=== PATIENT | female | born 1950 | race Caucasian/White ===

== ENCOUNTER 2018-12-05 13:39 | Emergency (ER) | payer MEDICARE, OTHER ==
[~2018-12-05] VITALS: Ht 162.6 cm; Wt 52.2 kg
--- NOTE | 2018-12-05 13:56 | ED Respiratory ---
General Chief Complaint: Respiratory Problems Stated Complaint: SOB Source: patient Exam Limitations: no limitations History of Present Illness Date Seen by Provider: Dec 05, 2018 Time Seen by Provider: 13:45 Initial Comments The patient is a very pleasant 68-year-old female who presents for evaluation of cough, shortness of breath, and wheezing. She reports a history of COPD and is a current smoker. She states that she went to her doctor's office for a "steroid pill" and was told that she needed to go to the emergency department for IV steroids as well as additional medications. She denies any history of admission or intubation and is at several similar episodes. She is tachypneic and wheezing upon arrival in mild to moderate distress. She is alert and oriented 4 and slightly anxious. She is noted to be quite hypertensive upon arrival but denies any significant history of hypertension or cardiac problems. She denies hemoptysis, productive cough, fevers or chills, nausea or vomiting, diaphoresis, palpitations, abdominal pain, back pain, chest pain, dizziness or syncope. Timing/Duration: this morning Severity: moderate Prior Episodes/Possible Cause: occasional episodes Modifying Factors: Improves With Albuterol Nebulizer (helped a little) Associated Symptoms: cough Allergies and Home Medications Allergies Coded Allergies: No Known Drug Allergies (Unverified , 12/05/18) Patient Home Medication List Home Medication List Reviewed: Yes Review of Systems Review of Systems Constitutional: no symptoms reported EENTM: no symptoms reported Respiratory: cough, short of breath, wheezing Cardiovascular: no symptoms reported Gastrointestinal: no symptoms reported Genitourinary: no symptoms reported Musculoskeletal: no symptoms reported Skin: no symptoms reported Psychiatric/Neurological: No Symptoms Reported Hematologic/Lymphatic: No Symptoms Reported Immunological/Allergic: no symptoms reported All Other Systems Reviewed Negative Unless Noted: Yes Past Mzaymmj-Ixhnll-Bqsoni Hx Past Med/Social Hx: Reviewed Nursing Past Med/Soc Hx Physical Exam Vital Signs - First Documented 12/05/18 12/05/18 13:43 13:45 Temp 97.2 Pulse 86 Resp 26 B/P (MAP) 213/114 (147) Pulse Ox 94 O2 Delivery Nasal Cannula O2 Flow Rate 2.00 FiO2 94 Capillary Refill : Height: '" Weight: lbs. oz. kg; BMI Method: General Appearance: WD/WN, moderate distress HEENT: PERRL/EOMI, pharynx normal Neck: non-tender, full range of motion, supple Respiratory: chest non-tender, accessory muscle use, wheezing Cardiovascular: regular rate, rhythm, no JVD, no murmur Gastrointestinal: normal bowel sounds, non tender, soft, no organomegaly Extremities: normal range of motion, non-tender, no pedal edema Neurologic/Psychiatric: carding doubler II-XII nml as tested, alert, normal mood/affect, oriented x 3 Skin: normal color, warm/dry Lymphatic: no adenopathy Progress/Results/Core Measures Suspected Sepsis SIRS Temperature: Pulse: Respiratory Rate: Laboratory Tests 12/05/18 13:55: White Blood Count 10.7 Blood Pressure / Mean: Laboratory Tests 12/05/18 13:55: Creatinine 0.80, Platelet Count 238, Total Bilirubin 0.6 Results/Orders Lab Results Laboratory Tests Test 12/05/18 13:55 12/05/18 14:27 Range/Units White Blood Count 10.7 4.3-11.0 10^3/uL Red Blood Count 5.27 4.35-5.85 10^6/uL Hemoglobin 15.6 11.5-16.0 G/DL Hematocrit 48 35-52 % Mean Corpuscular Volume 91 80-99 FL Mean Corpuscular Hemoglobin 30 25-34 PG Mean Corpuscular Hemoglobin Concent 32 32-36 G/DL Red Cell Distribution Width 14.4 10.0-14.5 % Platelet Count 238 130-400 10^3/uL Mean Platelet Volume 11.2 H 7.4-10.4 FL Neutrophils (%) (Auto) 61 42-75 % Lymphocytes (%) (Auto) 27 12-44 % Monocytes (%) (Auto) 8 0-12 % Eosinophils (%) (Auto) 3 0-10 % Basophils (%) (Auto) 1 0-10 % Neutrophils # (Auto) 6.5 1.8-7.8 X 10^3 Lymphocytes # (Auto) 2.9 1.0-4.0 X 10^3 Monocytes # (Auto) 0.9 0.0-1.0 X 10^3 Eosinophils # (Auto) 0.4 H 0.0-0.3 10^3/uL Basophils # (Auto) 0.1 0.0-0.1 10^3/uL Sodium Level 141 135-145 MMOL/L Potassium Level 4.1 3.6-5.0 MMOL/L Chloride Level 100 98-107 MMOL/L Carbon Dioxide Level 28 21-32 MMOL/L Anion Gap 13 5-14 MMOL/L Blood Urea Nitrogen 14 7-18 MG/DL Creatinine 0.80 0.60-1.30 MG/DL Estimat Glomerular Filtration Rate > 60 BUN/Creatinine Ratio 18 Glucose Level 121 H 70-105 MG/DL Calcium Level 9.1 8.5-10.1 MG/DL Corrected Calcium 9.0 8.5-10.1 MG/DL Total Bilirubin 0.6 0.1-1.0 MG/DL Aspartate Amino Transf (AST/SGOT) 25 5-34 U/L Alanine Aminotransferase (ALT/SGPT) 19 0-55 U/L Alkaline Phosphatase 112 40-136 U/L Pro-B-Type Natriuretic Peptide 67.1 <75.0 PG/ML Total Protein 6.5 6.4-8.2 GM/DL Albumin 4.1 3.2-4.5 GM/DL Blood Gas Puncture Site LEFT RADIAL Blood Gas Patient Temperature 98.1 Arterial Blood pH 7.41 7.37-7.43 Arterial Blood Partial Pressure CO2 58 H 35-45 MMHG Arterial Blood Partial Pressure O2 98 H 79-93 MMHG Arterial Blood HCO3 37 H 23-27 MMOL/L Arterial Blood Total CO2 38.6 H 21.0-31.0 MMOL/L Arterial Blood Oxygen Saturation 98 94-100 % Arterial Blood Base Excess 10.1 H -2.5-2.5 MMOL/L Sheldon Test YES-POS Blood Gas Ventilator Setting NO Blood Gas Inspired Oxygen 2 L My Orders Orders - LIBIA MCCANN DO Albuterol/Ipra Inhalation Soln (Duoneb I (12/05/18 14:00) Svn Small Volume Nebulizer (12/05/18 13:50) Methylprednisolone Sod Succ (Solu-Medrol (12/05/18 14:00) Magnesium 1 Gm/100 Ml Ivpb (Magnesium Christianson (12/05/18 14:00) Cbc With Automated Diff (12/05/18 13:50) Comprehensive Metabolic Panel (12/05/18 13:50) Chest 1 View Ap/Pa Only (12/05/18 13:50) Ekg Tracing (12/05/18 13:50) O2 (12/05/18 13:50) Ed Iv/Invasive Line Start (12/05/18 13:50) Monitor-Rhythm Ecg Trace Only (12/05/18 13:50) Arterial Blood Gas (12/05/18 13:50) Probnp Fs (12/05/18 13:50) Medications Given in ED Current Medications Medications Dose Ordered Sig/Zay Route Start Time Stop Time Status Last Admin Dose Admin Albuterol/ Ipratropium 3 ml ONCE ONCE INH 12/05/18 14:00 12/05/18 14:01 DC 12/05/18 14:33 3 ML Methylprednisolone Sodium Succinate 125 mg ONCE ONCE IM 12/05/18 14:00 12/05/18 14:01 DC 12/05/18 14:35 125 MG Vital Signs/I&O 12/05/18 12/05/18 13:43 13:45 Temp 97.2 Pulse 86 Resp 26 B/P (MAP) 213/114 (147) Pulse Ox 94 O2 Delivery Nasal Cannula Nasal Cannula O2 Flow Rate 2.00 2.00 FiO2 94 Capillary Refill : Progress Note : Progress Note @1512 - Patient updated on lab and imaging results. She states that she feels completely better and wants to go home. Advised the patient to follow up with her PCP in the next 1-2 days and to return to the emergency department immediately for difficult breathing, new or worsening symptoms. She expresses verbal understanding and is stable for discharge at this time. ECG Comment @1425 - Normal sinus rhythm, rate of 73, normal axis, no acute ischemic findings noted, no STEMI, reviewed and interpreted by myself Diagnostic Imaging Diagonstic Imaging: Xray Comments [facility], [place] NAME: TANO CORRALES [facility] REC#: [id number] PT STATUS: REG ER : 1950 PHYSICIAN: LIBIA MCCANN DO ADMIT DATE: 12/05/18/ER FS Draft Date of Exam:12/05/18 CHEST 1 VIEW AP/PA ONLY INDICATION: Shortness of breath and chronic bronchitis. TIME OF EXAM: 1:42 p.m. COMPARISON: No prior studies are available for comparison. FINDINGS: Significant emphysematous changes are identified in both lungs. No acute infiltrates are seen. No effusion or pneumothorax is identified. IMPRESSION: COPD. No acute feature is detected. Dictated on workstation # [id number] Dict: 12/05/18 1405 Trans: 12/05/18 1409 [id number] Interpreted by: DARY SULTANA MD Electronically signed by: Departure Impression Primary Impression: COPD with exacerbation Additional Impression: Tobacco abuse Disposition: 01 HOME, SELF-CARE Condition: Stable Departure-Patient Inst. Referrals: UMBERTO PITTS MD (PCP/Family) Primary Care Physician Patient Instructions: Exacerbation of COPD, Quitting Smoking Add. Discharge Instructions: Follow-up with her doctor in the next 1-2 days. Return to the ER for new or worsening symptoms. Take the prescribed medicine as directed. Scripts Prednisone (Prednisone) 20 Mg Tab 40 MG PO DAILY for 5 Days, #5 TAB 0 Refills Prov: LIBIA MCCANN DO 12/05/18 LIBIA MCCANN DO Dec 05, 2018 13:56
[2018-12-05] MEDS ORDERED: RT-ALBUTEROL/IPRATROPIUM 3 ML (DUONEB) VIAL INH ONE (14:00)
[2018-12-05] MEDS ORDERED: methylPREDNISolone 125 MG (Solu-MEDROL) VIAL IM ONE (14:00)
[2018-12-05 14:06] LABS: BASOPHILS % (AUTO) 1 % (0-10); EOSINOPHILS % (AUTO) 3 % (0-10); HEMATOCRIT 48 % (35-52); HEMOGLOBIN 15.6 G/DL (11.5-16.0); LYMPHOCYTES # (AUTO) 2.9 X 10^3 (1.0-4.0); LYMPHOCYTES % (AUTO) 27 % (12-44); MEAN CORPUSCULAR HEMOGLOBIN 30 PG (25-34); MEAN CORPUSCULAR HGB CONC 32 G/DL (32-36); MEAN CORPUSCULAR VOLUME 91 FL (80-99); MEAN PLATELET VOLUME 11.2 FL (7.4-10.4); MONOCYTES # (AUTO) 0.9 X 10^3 (0.0-1.0); MONOCYTES % (AUTO) 8 % (0-12); NEUTROPHILS # (AUTO) 6.5 X 10^3 (1.8-7.8); NEUTROPHILS % (AUTO) 61 % (42-75); PLATELET COUNT 238 10^3/uL (130-400); RED CELL DISTRIBUTION WIDTH 14.4 % (10.0-14.5); WHITE BLOOD COUNT 10.7 10^3/uL (4.3-11.0)
[2018-12-05 14:07] LABS: BASOPHILS # (AUTO) 0.1 10^3/uL (0.0-0.1); EOSINOPHILS # (AUTO) 0.4 10^3/uL (0.0-0.3)
--- NOTE | 2018-12-05 14:09 | Diagnostic Imaging Report ---
INDICATION: Shortness of breath and chronic bronchitis. TIME OF EXAM: 1:42 p.m. COMPARISON: No prior studies are available for comparison. FINDINGS: Significant emphysematous changes are identified in both lungs. No acute infiltrates are seen. No effusion or pneumothorax is identified. IMPRESSION: COPD. No acute feature is detected. Dictated by: Dictated on workstation # [id number]
[2018-12-05 14:26] LABS: ALANINE AMINOTRANSFERASE 19 U/L (0-55); ALKALINE PHOSPHATASE 112 U/L (40-136); BILIRUBIN,TOTAL 0.6 MG/DL (0.1-1.0); BUN/CREATININE RATIO 18; CALCIUM 9.1 MG/DL (8.5-10.1); CARBON DIOXIDE 28 MMOL/L (21-32); CHLORIDE 100 MMOL/L (98-107); GFR ESTIMATED > 60; GLUCOSE 121 MG/DL (70-105); POTASSIUM 4.1 MMOL/L (3.6-5.0); SODIUM 141 MMOL/L (135-145); TOTAL PROTEIN 6.5 GM/DL (6.4-8.2)
[2018-12-05 14:27] LABS: ALBUMIN 4.1 GM/DL (3.2-4.5)
[2018-12-05] MEDS: MAGNESIUM 1 GM/100 ML IVPB 100 ML IV SCH ×2 (14:35→15:23)
[2018-12-05 15:03] LABS: ABG BASE EXCESS 10.1 MMOL/L (-2.5-2.5); ABG PCO2 58 MMHG (35-45); ABG PH 7.41 (7.37-7.43); ABG PO2 98 MMHG (79-93); ABG TCO2 38.6 MMOL/L (21.0-31.0)
[2018-12-05 15:04] LABS: ABG OXYGEN SATURATION 98 % (94-100); ALLENS TEST YES-POS; INSPIRED O2 2 L; PATIENT TEMP 98.1; VENTILATOR NO
[2018-12-05] MEDS ORDERED: PRD20T PO (15:16)
[2018-12-05 15:53] VITALS: BP 128/81
== END 2018-12-05 15:57 | disposition home or self-care (01) ==
LOC: EDUNIT# 13:39 → ER FS 13:41
DX: J44.1 Chronic obstructive pulmonary disease with (acute) exacerbation (principal); F17.200 Nicotine dependence, unspecified, uncomplicated
CPT/HCPCS: 36415; 71045; 80053; 82805; 83880; 85025; 93005; 93041; 94640

== ENCOUNTER 2021-03-06 09:31 | Day surgery (SDC) | payer MEDICARE ==
[~2021-03-06] VITALS: Ht 162.6 cm; Wt 48.5 kg
[~2021-03-06 09:31] MED LIST: PRD20T PO
--- NOTE | 2021-03-06 09:48 | ED Respiratory ---
General Chief Complaint: Respiratory Problems Stated Complaint: COPD, SOB Source: patient Exam Limitations: no limitations History of Present Illness Date Seen by Provider: Mar 06, 2021 Time Seen by Provider: 09:30 Initial Comments Patient is a 70-year-old female who presents to the emergency department today with a chief complaint of progressive shortness of breath over the course of the last week with increasing cough and sputum production. Patient states that over the course of the last week she is also had increased swelling to her bilateral lower extremities with drainage from the right lower extremity secondary to all the swelling. Patient tells me that her only medical history is COPD and all that she takes are respiratory medications. She states that she has chest "tightness" as a result of having such difficulty breathing. When she arrived to the emergency room her oxygen saturations on room air were 68/69%. She drove down from [place], does not have portable oxygen and therefore did not have any on. She states she is not Covid vaccinated. She denies any fevers, chills, sore throat, body aches. No diarrhea, problems with bladder issues. Patient states it has been about 6 months since she has seen anybody at [facility] in [place]. All other review of systems reviewed and negative except as stated. Timing/Duration: week, getting worse Severity: severe Prior Episodes/Possible Cause: frequent episodes Modifying Factors: Improves With Albuterol Inhaler, Improves With Oxygen Associated Symptoms: chest pain/soreness ("tightness"), lightheadedness, shortness of breath, wheezing Allergies and Home Medications Allergies Coded Allergies: No Known Drug Allergies (Unverified , 12/05/18) Patient Home Medication List Home Medication List Reviewed: Yes Prednisone (Prednisone) 20 Mg Tab, 40 MG PO DAILY Prescribed by: LIBIA MCCANN on 12/05/18 7246 Review of Systems Review of Systems Constitutional: see HPI EENTM: no symptoms reported Respiratory: cough, phlegm, short of breath, wheezing Cardiovascular: chest pain ("tightness"), edema Gastrointestinal: no symptoms reported Genitourinary: no symptoms reported : No Musculoskeletal: no symptoms reported Skin: no symptoms reported Psychiatric/Neurological: No Symptoms Reported All Other Systems Reviewed Negative Unless Noted: Yes Past Nsmaaqe-Yjvgdv-Copfui Hx Seasonal Allergies Seasonal Allergies: No Past Medical History Surgeries: Yes Gallbladder, Tonsillectomy, Tubal Ligation Respiratory: Yes Chronic Bronchitis, COPD Cardiac: No Neurological: No Genitourinary: No Gastrointestinal: No Musculoskeletal: No Endocrine: No HEENT: No Cancer: No Psychosocial: No Integumentary: No Physical Exam Vital Signs - First Documented Capillary Refill : Height: 5'4.00" Weight: 115lbs. oz. 52.107589vm; BMI Method:Stated General Appearance: moderate distress, cachetic Eyes: Bilateral Eye Normal Inspection, Bilateral Eye PERRL, Bilateral Eye EOMI HEENT: PERRL/EOMI Neck: full range of motion Respiratory: accessory muscle use, wheezing, expiration, other (mild to moderate increased work of breathing) Cardiovascular: regular rate, rhythm, other (significant LE edema bilateral (right greater than left leg)) Gastrointestinal: normal bowel sounds, non tender, soft Extremities: normal range of motion, pedal edema Neurologic/Psychiatric: alert, normal mood/affect, oriented x 3 Skin: warm/dry, pallor Progress/Results/Core Measures Suspected Sepsis SIRS Temperature: Pulse: Respiratory Rate: Laboratory Tests 03/06/21 09:40: White Blood Count 8.9 Blood Pressure / Mean: Laboratory Tests 03/06/21 09:40: Creatinine 0.66, Platelet Count 205, Total Bilirubin 0.9 Results/Orders Lab Results Laboratory Tests Test 03/06/21 09:40 Range/Units White Blood Count 8.9 4.3-11.0 10^3/uL Red Blood Count 5.35 H 3.80-5.11 10^6/uL Hemoglobin 15.4 11.5-16.0 g/dL Hematocrit 50 35-52 % Mean Corpuscular Volume 93 80-99 fL Mean Corpuscular Hemoglobin 29 25-34 pg Mean Corpuscular Hemoglobin Concent 31 L 32-36 g/dL Red Cell Distribution Width 15.3 H 10.0-14.5 % Platelet Count 205 130-400 10^3/uL Mean Platelet Volume 11.4 9.0-12.2 fL Immature Granulocyte % (Auto) 0 % Neutrophils (%) (Auto) 75 42-75 % Lymphocytes (%) (Auto) 14 12-44 % Monocytes (%) (Auto) 9 0-12 % Eosinophils (%) (Auto) 1 0-10 % Basophils (%) (Auto) 1 0-10 % Neutrophils # (Auto) 6.6 1.8-7.8 10^3/uL Lymphocytes # (Auto) 1.2 1.0-4.0 10^3/uL Monocytes # (Auto) 0.8 0.0-1.0 10^3/uL Eosinophils # (Auto) 0.1 0.0-0.3 10^3/uL Basophils # (Auto) 0.1 0.0-0.1 10^3/uL Immature Granulocyte # (Auto) 0.0 0.0-0.1 10^3/uL Sodium Level 143 135-145 MMOL/L Potassium Level 3.4 L 3.6-5.0 MMOL/L Chloride Level 88 L 98-107 MMOL/L Carbon Dioxide Level 42 H 21-32 MMOL/L Anion Gap 13 5-14 MMOL/L Blood Urea Nitrogen 10 7-18 MG/DL Creatinine 0.66 0.60-1.30 MG/DL Estimat Glomerular Filtration Rate 89 BUN/Creatinine Ratio 15 Glucose Level 115 H 70-105 MG/DL Calcium Level 8.9 8.5-10.1 MG/DL Corrected Calcium 9.2 8.5-10.1 MG/DL Total Bilirubin 0.9 0.1-1.0 MG/DL Aspartate Amino Transf (AST/SGOT) 41 H 5-34 U/L Alanine Aminotransferase (ALT/SGPT) 29 0-55 U/L Alkaline Phosphatase 85 40-136 U/L Troponin I 0.189 H <0.028 NG/ML B-Type Natriuretic Peptide 789.7 H <100.0 PG/ML Total Protein 5.6 L 6.4-8.2 GM/DL Albumin 3.6 3.2-4.5 GM/DL Procalcitonin 0.08 <0.10 NG/ML My Orders Orders - NIRAV KIDD MD Ed Iv/Invasive Line Start (03/06/21 09:42) Cbc With Automated Diff (03/06/21 09:42) BNP (03/06/21 09:42) Troponin I (03/06/21 09:42) Ekg Tracing (03/06/21 09:42) Chest 1 View, Ap/Pa Only (03/06/21 09:42) Comprehensive Metabolic Panel (03/06/21 09:42) Procalcitonin (Pct) (03/06/21 09:48) Albuterol/Ipra Inhalation Soln (Rosanneb I (03/06/21 10:15) Svn Small Volume Nebulizer (03/06/21 10:06) Communication For Respiratory (03/06/21 10:06) Methylprednisolone Sod Succ (Solu-Medrol (03/06/21 10:15) Aspirin Chewable Tablet (Baby Aspirin Ch (03/06/21 11:00) Medications Given in ED Current Medications Medications Dose Ordered Sig/Zay Route Start Time Stop Time Status Last Admin Dose Admin Albuterol/ Ipratropium 3 ml ONCE ONCE INH 03/06/21 10:15 03/06/21 10:17 DC 03/06/21 10:20 3 ML Methylprednisolone Sodium Succinate 125 mg ONCE ONCE IVP 03/06/21 10:15 03/06/21 10:17 DC 03/06/21 10:14 125 MG Vital Signs/I&O 03/06/21 03/06/21 03/06/21 03/06/21 09:35 09:35 09:35 10:21 Temp 37.1 37.1 Pulse 86 86 Resp 14 14 B/P (MAP) 162/117 (132) 162/117 Pulse Ox 99 100 97 O2 Delivery Nasal Cannula Nasal Cannula Nasal Cannula O2 Flow Rate 4.00 4.00 4.00 4.00 Capillary Refill : Progress Note : Time: 11:11 Progress Note Patient is feeling much better after breathing treatment, Solu-Medrol. She states that she has no more chest tightness. Her wheezing is all but dissipated. Case is discussed with Dr. Walls and with Dr. Diaz. Secondary to elevated troponin. Dr Walls is down here to see the patient and her EKG ECG Initial ECG Impression Date: Mar 06, 2021 Initial ECG Impression Time: 09:46 Initial ECG Rate: 85 Initial ECG Rhythm: Normal Sinus Initial ECG Intervals MA 102 QRS 83 QTc 527 Deeply inverted T waves across the precordium without evidence of ST segment elevation or depression Initial ECG Comparisson: Changed Diagnostic Imaging Diagonstic Imaging: Xray Plain Films/CT/US/NM/MRI: chest Comments [facility], [place] NAME: TANO CORRALES [facility] REC#: [id number] PT STATUS: REG ER : 1950 PHYSICIAN: NIRAV KIDD MD ADMIT DATE: 03/06/21/ER Draft Date of Exam:03/06/21 CHEST 1 VIEW, AP/PA ONLY INDICATION: COPD and shortness of air. TIME OF EXAM: 9:59 AM Correlation is made with prior chest of 12/05/2018. Heart size is stable. Lungs are hyperinflated consistent with COPD. No acute infiltrate seen. There is no significant effusion or pneumothorax. IMPRESSION: COPD. Dictated on workstation # [id number] Dict: 03/06/21 1011 Trans: 03/06/21 1018 [facility] [id number] Interpreted by: DARY SULTANA MD Electronically signed by: Departure Communication (Admissions) Time/Spoke to Admitting Phy: 11:[address] Diaz Time/Spoke to Consulting Phy: 11:[address] Walls Impression Primary Impression: COPD exacerbation Additional Impressions: Chest pain Qualified Codes: R07.9 - Chest pain, unspecified Elevated troponin I level Disposition: ADMITTED INPATIENT Condition: Stable Admissions Decision to Admit Reason: Admit from ER (General) Decision to Admit/Date: Mar 06, 2021 Time/Decision to Admit Time: 11:13 Departure-Patient Inst. Referrals: UMBERTO PITTS MD (PCP/Family) Primary Care Physician NIRAV KIDD MD Mar 06, 2021 09:48
[2021-03-06 09:58] LABS: BASOPHILS # (AUTO) 0.1 10^3/uL (0.0-0.1); BASOPHILS % (AUTO) 1 % (0-10); EOSINOPHILS # (AUTO) 0.1 10^3/uL (0.0-0.3); EOSINOPHILS % (AUTO) 1 % (0-10); HEMATOCRIT 50 % (35-52); HEMOGLOBIN 15.4 g/dL (11.5-16.0); LYMPHOCYTES # (AUTO) 1.2 10^3/uL (1.0-4.0); LYMPHOCYTES % (AUTO) 14 % (12-44); MEAN CORPUSCULAR HEMOGLOBIN 29 pg (25-34); MEAN CORPUSCULAR HGB CONC 31 g/dL (32-36); MEAN CORPUSCULAR VOLUME 93 fL (80-99); MEAN PLATELET VOLUME 11.4 fL (9.0-12.2); MONOCYTES # (AUTO) 0.8 10^3/uL (0.0-1.0); MONOCYTES % (AUTO) 9 % (0-12); NEUTROPHILS # (AUTO) 6.6 10^3/uL (1.8-7.8); NEUTROPHILS % (AUTO) 75 % (42-75); PLATELET COUNT 205 10^3/uL (130-400); WHITE BLOOD COUNT 8.9 10^3/uL (4.3-11.0)
[2021-03-06 10:11] LABS: ALBUMIN 3.6 GM/DL (3.2-4.5)
[2021-03-06 10:12] LABS: POTASSIUM 3.4 MMOL/L (3.6-5.0)
[2021-03-06 10:13] LABS: CALCIUM 8.9 MG/DL (8.5-10.1)
[2021-03-06 10:14] LABS: TOTAL PROTEIN 5.6 GM/DL (6.4-8.2)
[2021-03-06] MEDS ORDERED: methylPREDNISolone 125 MG (Solu-MEDROL) VIAL IVP ONE (10:15)
[2021-03-06] MEDS ORDERED: RT-ALBUTEROL/IPRATROPIUM 3 ML (DUONEB) VIAL INH ONE (10:15)
[2021-03-06 10:16] LABS: BILIRUBIN,TOTAL 0.9 MG/DL (0.1-1.0)
[2021-03-06 10:18] LABS: CREATININE SERUM 0.66 MG/DL (0.60-1.30)
--- NOTE | 2021-03-06 10:18 | Diagnostic Imaging Report ---
INDICATION: COPD and shortness of air. TIME OF EXAM: 9:59 AM Correlation is made with prior chest of 12/05/2018. Heart size is stable. Lungs are hyperinflated consistent with COPD. No acute infiltrate seen. There is no significant effusion or pneumothorax. IMPRESSION: COPD. Dictated by: Dictated on workstation # [id number]
[2021-03-06] MEDS ORDERED: ASPIRIN 81 MG CHEW (CHILDREN'S ASA) PO STA (11:00)
--- NOTE | 2021-03-06 11:21 | Consultation-Cardiology ---
HPI-Cardiology Cardiology Consultation Date of Consultation 03/06/21 Date of Admission Time Seen by Provider: 11:18 Indication: Non-ST elevation myocardial infarction HPI 70-year-old lady with history of COPD, tobaccoism, has been having increasing dyspnea on exertion and increasing shortness of breath at rest which progressed to the point that she came into the emergency room for evaluation. She denied any chest pain but reported some tightness, noted to have pedal edema. No palpitation, syncope or near syncopal episode. On arrival her BNP and troponin were elevated. She denied any active chest pain. EKG showed deep T wave inversion in the anterolateral leads. Home Medications & Allergies Allergies: Coded Allergies: No Known Drug Allergies (Unverified , 12/05/18) Home Medication List Reviewed: Yes RNS-Hkynxd-Wecomm Hx Patient Social History Employed/Student: retired Smoking Status: Current Everyday Smoker Type Used: Cigarettes 2nd Hand Smoke Exposure: Yes Recent Hopitalizations: No Alcohol Use?: No Past Medical History Discussed below Family Medical History Family Medical Hx Noncontributory Review of Systems-General Review of Systems Constitutional: see HPI, malaise EENTM: see HPI, no symptoms reported Respiratory: see HPI, cough, phlegm, short of breath, wheezing Cardiovascular: see HPI, chest pain ("tightness"), edema; No Hx of Intervention, No palpitations, No syncope, No vascular heart diseas, No other Gastrointestinal: no symptoms reported Genitourinary: no symptoms reported, see HPI : No Musculoskeletal: no symptoms reported, see HPI Skin: no symptoms reported, see HPI Psychiatric/Neurological: No Symptoms Reported, See HPI All Other Systems Reviewed Negative Unless Noted: Yes Reviewed Test Results Reviewed Test Results Lab Laboratory Tests Test 03/06/21 09:40 Range/Units White Blood Count 8.9 4.3-11.0 10^3/uL Red Blood Count 5.35 H 3.80-5.11 10^6/uL Hemoglobin 15.4 11.5-16.0 g/dL Hematocrit 50 35-52 % Mean Corpuscular Volume 93 80-99 fL Mean Corpuscular Hemoglobin 29 25-34 pg Mean Corpuscular Hemoglobin Concent 31 L 32-36 g/dL Red Cell Distribution Width 15.3 H 10.0-14.5 % Platelet Count 205 130-400 10^3/uL Mean Platelet Volume 11.4 9.0-12.2 fL Immature Granulocyte % (Auto) 0 % Neutrophils (%) (Auto) 75 42-75 % Lymphocytes (%) (Auto) 14 12-44 % Monocytes (%) (Auto) 9 0-12 % Eosinophils (%) (Auto) 1 0-10 % Basophils (%) (Auto) 1 0-10 % Neutrophils # (Auto) 6.6 1.8-7.8 10^3/uL Lymphocytes # (Auto) 1.2 1.0-4.0 10^3/uL Monocytes # (Auto) 0.8 0.0-1.0 10^3/uL Eosinophils # (Auto) 0.1 0.0-0.3 10^3/uL Basophils # (Auto) 0.1 0.0-0.1 10^3/uL Immature Granulocyte # (Auto) 0.0 0.0-0.1 10^3/uL Sodium Level 143 135-145 MMOL/L Potassium Level 3.4 L 3.6-5.0 MMOL/L Chloride Level 88 L 98-107 MMOL/L Carbon Dioxide Level 42 H 21-32 MMOL/L Anion Gap 13 5-14 MMOL/L Blood Urea Nitrogen 10 7-18 MG/DL Creatinine 0.66 0.60-1.30 MG/DL Estimat Glomerular Filtration Rate 89 BUN/Creatinine Ratio 15 Glucose Level 115 H 70-105 MG/DL Calcium Level 8.9 8.5-10.1 MG/DL Corrected Calcium 9.2 8.5-10.1 MG/DL Total Bilirubin 0.9 0.1-1.0 MG/DL Aspartate Amino Transf (AST/SGOT) 41 H 5-34 U/L Alanine Aminotransferase (ALT/SGPT) 29 0-55 U/L Alkaline Phosphatase 85 40-136 U/L Troponin I 0.189 H <0.028 NG/ML B-Type Natriuretic Peptide 789.7 H <100.0 PG/ML Total Protein 5.6 L 6.4-8.2 GM/DL Albumin 3.6 3.2-4.5 GM/DL Procalcitonin 0.08 <0.10 NG/ML Physical Exam Physical Exam Vital Signs Vital Signs - First Documented Capillary Refill : Less Than 3 Seconds Height, Weight, BMI Height: 5'4.00" Weight: 115lbs. oz. 52.605630uv; 18.00 BMI Method:Stated General Appearance: No Apparent Distress, WD/WN Eyes: Bilateral Eye Normal Inspection, Bilateral Eye PERRL, Bilateral Eye EOMI HEENT: PERRL/EOMI, TMs Normal, Normal ENT Inspection, Pharynx Normal, Moist Mucous Membranes Neck: Full Range of Motion, Normal Inspection, Non Tender, Supple, Carotid Bruit Respiratory: Chest Non Tender, Normal Breath Sounds, No Accessory Muscle Use, No Respiratory Distress Cardiovascular: Regular Rate, Rhythm, No Edema, No Gallop, No JVD, No Murmur, N ormal Peripheral Pulses Gastrointestinal: Normal Bowel Sounds, No Organomegaly, No Pulsatile Mass, Non Tender, Soft Back: Normal Inspection, No CVA Tenderness, No Vertebral Tenderness Extremity: Normal Capillary Refill, Normal Inspection, Normal Range of Motion, Non Tender, No Calf Tenderness, Pedal Edema Neurologic/Psychiatric: Alert, Oriented x3, No Motor/Sensory Deficits, Normal Mood/Affect Skin: Normal Color, Warm/Dry Lymphatic: No Adenopathy A/P-Cardiology Admission Diagnosis Non-ST elevation myocardial infarction Congestive heart failure Acute exacerbation of COPD Hypertension Assessment/Plan Non-ST elevation myocardial infarction, mild elevation troponin with diffuse T wave inversion in the anterolateral lead, I am planning to proceed with cardiac catheterization possible PTCA Congestive heart failure, acute, will start diuretics, evaluate 2D echocardiogram. Shortness of breath, acute exacerbation of COPD, oxygen dependent, monitor blood pressure Hypertension, planning to start beta-blockers. Monitor blood pressure Tobaccoism, educated on smoking cessation. GODWIN VAZQUEZ MD Mar 06, 2021 11:21
--- NOTE | 2021-03-06 11:22 | Conscious Sedation/ASA ---
Conscious Sedation Pre-Proced Time 11:21 ASA Score 3 For ASA 3 and 4: Consider anesthesia and medical clearance. Also, for patients with a history of failed moderate sedation consider anesthesia. Airway Lungs Heart ASA score ASA 1: a normal healthy patient ASA 2: a patient with a mild systemic disease (mid diabetes, controlled hypertension, obesity x ASA 3: a patient with a severe systemic disease that limits activity (angina, COPD, prior Myocardial infarction) ASA 4: a patient with an incapacitating disease that is a constant threat to life (CHF, renal failure) ASA 5: a moribund patient not expected to survive 24 hrs. (ruptured aneurysm) ASA 6: a declared brain- patient whose organs are being harvested. For emergent operations, add the letter E after the classification Mallampati Classification Grade 3 Sedation Plan Analgesia, Amnesia, Plan communicated to team members, Discussed options with patient/fam, Discussed risks with patient/fam The patient is an appropriate candidate to undergo the planned procedure, sedation, and anesthesia. The patient immediately re-assessed prior to indication. GODWIN VAZQUEZ MD Mar 06, 2021 11:22
[2021-03-06] MEDS ORDERED: fentaNYL INJ 100 MCG/2 ML AMP ONE (11:37)
[2021-03-06] MEDS ORDERED: HEParin (CATH LAB) 2,000 ML IV ONE (11:38)
[2021-03-06] MEDS ORDERED: HEParin 1000 UNIT/ML (10ML VIAL) FOR BOLUS ONE (11:38)
[2021-03-06] MEDS ORDERED: MIDAZOLAM 5 MG/5 ML (VERSED) VIAL ONE (11:38)
[2021-03-06] MEDS ORDERED: NITRO DRIP 25000 MCG/D5W 0 ML IV ONE (11:38)
[2021-03-06] MEDS ORDERED: LIDOCAINE 1% INJ 20 ML 20 ML VIAL ONE (11:38)
[2021-03-06] MEDS ORDERED: NS IV 1000 ML 1,000 ML ONE (11:38)
[2021-03-06] MEDS ORDERED: meTOprolol 5 MG/5 ML (LOPRESSOR) VIAL ONE (12:20)
[2021-03-06] MEDS ORDERED: PATIENT MAY USE OWN MEDS, ALL PO SCH (12:30)
--- NOTE | 2021-03-06 12:34 | Cardiac Cath Report ---
Cardiac Cath Report Physician (s)/Automotive Title Clerk (s) Physician GODWIN VAZQUEZ MD Pre-Procedure Diagnosis Pre-Procedure Diagnosis: Elevated troponin level Post-Procedure Note Procedure Start Date: Mar 06, 2021 Name of Procedure: Left heart catheterization Aortic arch angiogram Abdominal aortic angiogram Findings/Procedure Note PROCEDURE NOTE: 70-year-old lady with history of COPD, admitted with acute shortness of breath, noted to have elevated BNP and troponin level, decision was made to proceed with left heart catheterization possible PTCA After explaining the procedure to the patient, all pros and cons were explained, all questions were answered. The patient signed the consent and then she was placed on the cardiac catheterization laboratory. Groin was prepped SL fashion local anesthesia was used. Sheath placed in the right femoral artery. Martha right and left catheter were used to access the coronary system. Pigtail was used to access the left ventricular cavity. Left ventriculogram was done I had difficulty advancing the wire and the catheter through the abdominal aorta and heavy calcification noted in the aortic arch I decided to evaluate the abdominal aorta and aortic arch. Aortic arch angiogram showed calcified aortic arch, no dissection or aneurysm, heavy calcification at the brachiocephalic artery with ulcerated plaque at the origin of the brachiocephalic artery, calcified left carotid and left subclavian artery with nonobstructive disease Abdominal aortogram done in the AP position showed atherosclerotic plaques in the abdominal aorta, infrarenal abdominal aortic aneurysm small to moderate in size. The left renal artery has mild to moderate stenosis, right renal artery is normal, mesenteric arteries are normal At the end of the procedure the sheath was removed. Manual pressure applied FINDINGS: Hemodynamics LV 131/15, end-diastolic pressure of 15 Aorta 128/59 mean of 88 ANATOMY: Left Main is free of obstructive disease Left Anterior Descending has calcification in the proximal portion, mild disease at the proximal and midportion nonobstructive disease Left Circumflex has mild disease nonobstructive disease Right Coronary Artery is small artery with no significant obstructive disease LV Gram was done showing normal left ventricular size, preserved systolic function, estimated ejection fraction 50% Aortic arch angiogram showed calcified aortic arch, no dissection or aneurysm, ulcerated plaque at the origin of the right carotid/brachiocephalic artery, calcified left carotid and left subclavian artery with nonobstructive disease Abdominal aortogram done in the AP position, small to moderate size infrarenal abdominal aortic aneurysm was noted, mild to moderate disease in the left renal artery, normal right renal artery, normal mesenteric arteries CONCLUSION: 1. Calcified coronary system with mild to moderate disease in the proximal and mid LAD, nonobstructive disease otherwise no significant coronary artery disease 2. Normal left ventricular size, preserved systolic function estimate ejection fraction 50% 3. Calcified aortic arch with no dissection or aneurysm 4. Ulcerated plaque at the origin of the right carotid artery/brachiocephalic artery with calcified artery 5. Calcification at the left carotid artery and left subclavian artery with no significant obstructive disease 6. Infrarenal abdominal aortic aneurysm small to moderate in size 7. Mild to moderate left renal artery stenosis, normal right renal artery DISCUSSION AND RECOMMENDATION: Maximizing medical therapy is recommended no intervention is recommended at this point. Troponin elevation is probably due to hypoxemia and respiratory failure Anesthesia Type: Conscious Sedation Estimated blood loss (mL): 25 ml Contrast Amount: 80 ml Total Radiation Dose: 107 mGy Post-Procedure Diagnosis Post-operative diagnosis: Elevated troponin Coronary artery disease Abdominal aortic aneurysm Hypertension GODWIN VAZQUEZ MD Mar 06, 2021 12:34
[2021-03-06] MEDS ORDERED: BUDE10.2 IH (13:24)
[2021-03-06] MEDS ORDERED: RT-ALBUINH IH (13:27)
[2021-03-06] MEDS: NS IV 1000 ML 1,000 ML IV SCH (14:17)
--- NOTE | 2021-03-06 14:27 | Tele-ICU Consult ---
Progress Note 70 y/o f presents to ED with SOB and levated troponins EKG showed deep T wave inversions. Taken to computer lab aide: . Calcified coronary system with mild to moderate disease in the proximal and mid LAD, nonobstructive disease otherwise no significant coronary artery disease 2. Normal left ventricular size, preserved systolic function estimate ejection fraction 50% 3. Calcified aortic arch with no dissection or aneurysm 4. Ulcerated plaque at the origin of the right carotid artery/brachiocephalic artery with calcified artery 5. Calcification at the left carotid artery and left subclavian artery with no significant obstructive disease 6. Infrarenal abdominal aortic aneurysm small to moderate in size 7. Mild to moderate left renal artery stenosis, normal right renal artery Plan: tarted on neb and steroids, antibiotics foor PNA COPD excaccerbation Focused Exam Height, Weight, BMI Height: 5'4.00" Weight: 115lbs. oz. 52.171042lk; 18.19 BMI Method:Stated Labs Laboratory Tests 03/06/21 09:40 Labs Labs Laboratory Tests 03/06/21 09:40: White Blood Count 8.9, Red Blood Count 5.35H, Hemoglobin 15.4, Hematocrit 50, Mean Corpuscular Volume 93, Mean Corpuscular Hemoglobin 29, Mean Corpuscular Hemoglobin Concent 31L, Red Cell Distribution Width 15.3H, Platelet Count 205, Mean Platelet Volume 11.4, Immature Granulocyte % (Auto) 0, Neutrophils (%) (Auto) 75, Lymphocytes (%) (Auto) 14, Monocytes (%) (Auto) 9, Eosinophils (%) (Auto) 1, Basophils (%) (Auto) 1, Neutrophils # (Auto) 6.6, Lymphocytes # (Auto) 1.2, Monocytes # (Auto) 0.8, Eosinophils # (Auto) 0.1, Basophils # (Auto) 0.1, Immature Granulocyte # (Auto) 0.0, Sodium Level 143, Potassium Level 3.4L, Chloride Level 88L, Carbon Dioxide Level 42H, Anion Gap 13, Blood Urea Nitrogen 10, Creatinine 0.66, Estimat Glomerular Filtration Rate 89, BUN/Creatinine Ratio 15, Glucose Level 115H, Calcium Level 8.9, Corrected Calcium 9.2, Total Bilirub in 0.9, Aspartate Amino Transf (AST/SGOT) 41H, Alanine Aminotransferase (ALT/SG PT) 29, Alkaline Phosphatase 85, Troponin I 0.189H, B-Type Natriuretic Peptide 789.7H, Total Protein 5.6L, Albumin 3.6, Procalcitonin 0.08 MAGALIS ALCANTARA MD Mar 06, 2021 14:27
[2021-03-06 15:44] VITALS: BP 116/61
[2021-03-06] MEDS ORDERED: RT-ALBUTEROL/IPRATROPIUM 3 ML (DUONEB) VIAL INH PRN (16:15)
[2021-03-06] MEDS: methylPREDNISolone 40 MG/ML (Solu-MEDROL) VIAL IV SCH (17:14)
[2021-03-06] MEDS: FUROSEMIDE 40 MG/4 ML INJ (LASIX) IVP SCH (17:14)
[2021-03-06] MEDS: RT--FLUTICASONE/SALMETEROL 113-14 (AIRDUO RespiCLICK) IH SCH (18:49)
[2021-03-06] MEDS: RT-ALBUTEROL/IPRATROPIUM 3 ML (DUONEB) VIAL INH SCH ×2 (18:50→21:27)
[2021-03-06] MEDS ORDERED: ADVAIR HFA 115/21 MCG INHALER 8 GM IH SCH (21:00)
[2021-03-07] MEDS: methylPREDNISolone 40 MG/ML (Solu-MEDROL) VIAL IV SCH ×3 (00:09→18:11)
[2021-03-07] MEDS: RT-ALBUTEROL/IPRATROPIUM 3 ML (DUONEB) VIAL INH SCH ×6 (02:36→21:13)
[2021-03-07 05:10] LABS: BASOPHILS % (AUTO) 0 % (0-10); EOSINOPHILS % (AUTO) 0 % (0-10); HEMATOCRIT 44 % (35-52); HEMOGLOBIN 13.4 g/dL (11.5-16.0); LYMPHOCYTES # (AUTO) 0.4 10^3/uL (1.0-4.0); LYMPHOCYTES % (AUTO) 9 % (12-44); MEAN CORPUSCULAR HEMOGLOBIN 28 pg (25-34); MEAN CORPUSCULAR HGB CONC 31 g/dL (32-36); MEAN CORPUSCULAR VOLUME 92 fL (80-99); MONOCYTES # (AUTO) 0.2 10^3/uL (0.0-1.0); MONOCYTES % (AUTO) 5 % (0-12); NEUTROPHILS # (AUTO) 3.4 10^3/uL (1.8-7.8); NEUTROPHILS % (AUTO) 85 % (42-75); PLATELET COUNT 172 10^3/uL (130-400)
[2021-03-07 05:25] LABS: POTASSIUM 4.1 MMOL/L (3.6-5.0)
[2021-03-07 05:26] LABS: CALCIUM 8.3 MG/DL (8.5-10.1)
[2021-03-07 05:27] LABS: TOTAL PROTEIN 4.6 GM/DL (6.4-8.2)
[2021-03-07 05:29] LABS: BILIRUBIN,TOTAL 0.6 MG/DL (0.1-1.0)
[2021-03-07 05:31] LABS: CREATININE SERUM 0.69 MG/DL (0.60-1.30)
[2021-03-07] MEDS: FUROSEMIDE 40 MG/4 ML INJ (LASIX) IVP SCH ×2 (06:17→16:21)
[2021-03-07] MEDS: RT--FLUTICASONE/SALMETEROL 113-14 (AIRDUO RespiCLICK) IH SCH (07:13)
--- NOTE | 2021-03-07 08:42 | Cardiology Progress Note ---
Subjective Date Seen by Provider: Mar 07, 2021 Time Seen by Provider: 08:37 Subjective/Events-last exam Patient is laying down in bed, feeling better, breathing better. No new complaint Review of Systems General: No Chills, No Night Sweats, No Fatigue, No Malaise, No Appetite, No Other HEENT: No Head Aches, No Visual Changes, No Eye Pain, No Ear Pain, No Dysphasia, No Sinus Congestion, No Post Nasal Drip, No Sore Throat, No Other Pulmonary: No Dyspnea, No Cough, No Pleuritic Chest Pain, No Other Cardiovascular: No: Chest Pain, Palpitations, Orthopnea, Paroxysmal Noc. Dyspnea, Edema, Lt Headedness, Other Objective-Cardiology Exam Last Set of Vital Signs Vital Signs 03/07/21 03/07/21 04:00 07:13 Pulse 64 Resp 12 B/P (MAP) 118/52 Pulse Ox 94 O2 Delivery Nasal Cannula O2 Flow Rate 4.00 I&O Intake and Output 03/07/21 00:00 Intake Total 600 ml Output Total 600 ml Balance 0 ml Intake Oral 600 ml Output Urine Total 600 ml # Voids 1 Daily Weight Change No General: Alert, Oriented X3, Cooperative HEENT: Atraumatic, PERRLA Neck: Supple, No JVD, No Thyromegaly Lungs: Clear to Auscultation, Normal Air Movement Heart: Regular Rate, Normal S1, Normal S2, No Murmurs Abdomen: Normal Bowel Sounds, Soft, No Tenderness, No Hepatosplenomegaly, No Masses Extremities: No Clubbing, No Cyanosis, No Edema, Normal Pulses, No Tenderness/Swelling Skin: No Rashes, No Breakdown, No Significant Lesion Neuro: Normal Gait, Normal Speech, Strength at 5/5 X4 Ext, Normal Tone, Sensation Intact Psych/Mental Status: Mental Status NL, Mood NL Results Lab Laboratory Tests 03/06/21 09:40 03/07/21 04:40 03/07/21 05:00 A/P-Cardiology Admission Diagnosis Non-ST elevation myocardial infarction Congestive heart failure Acute exacerbation of COPD Hypertension Assessment/Plan Elevated troponin level, probably type II myocardial infarction secondary to exacerbation of COPD and hypoxemia. Cardiac catheterization showed nonobstructive disease Cardiac catheterization was carried out on March 06, 2021 showing mild coronary artery disease mild to moderate disease in the proximal and mid LAD otherwise nonobstructive disease. Normal left ventricular size and systolic function, ejection fraction 50% Ulcerated plaque at the origin of the right carotid artery/brachiocephalic artery. I will evaluate carotid ultrasound Small to moderate size infrarenal abdominal aortic aneurysm, calcified aortic arch. We will start beta-blockers and monitor Mild to moderate left renal artery stenosis with normal right renal artery. Congestive heart failure, acute, will start diuretics, evaluate 2D echocardiogram. Shortness of breath, acute exacerbation of COPD, oxygen dependent, monitor blood pressure Hypertension, I will start low-dose beta-blockers and evaluate tolerance and response Tobaccoism, educated on smoking cessation. GODWIN VAZQUEZ MD Mar 07, 2021 08:42
[2021-03-07] MEDS: ASPIRIN E.C. 81 MG (ECOTRIN) TAB PO SCH (08:46)
[2021-03-07] MEDS: PANTOPRAZOLE 40 MG (PROTONIX) TAB PO SCH (08:46)
[2021-03-07] MEDS: LOSARTAN 25 MG (COZAAR) TAB PO SCH (08:46)
[2021-03-07] MEDS: NS IV 1000 ML 1,000 ML IV SCH (08:47)
--- NOTE | 2021-03-07 09:48 | Diagnostic Imaging Report ---
PROCEDURE: US carotid duplex bilateral. TECHNIQUE: Multiple Real-time grayscale images were obtained over the carotid arteries in various projections bilaterally. Additional spectral analysis and color Doppler duplex images were also obtained. INDICATION: Carotid stenosis. FINDINGS: There are no focally elevated velocities in either internal carotid artery. The ICA/CCA ratios are within normal limits bilaterally. There is antegrade flow in the vertebral arteries bilaterally. Grayscale images demonstrate minimal carotid plaque bilaterally. IMPRESSION: Minimal bilateral carotid plaque; however, spectral analysis shows no evidence of a hemodynamically significant stenosis in either internal carotid artery. Parameters based on the consensus panel Jeffers-Scale and Doppler ultrasound criteria published February 2003, Radiology, Volume 229. DOPPLER (peak systolic velocity M/S Right Left CCA 1.01 1.48 ICA Proximal 1.34 1.63 ICA Mid 1.35 1.40 ICA Distal .38 .89 RATIO 1.3 .94 ECA 1.03 2.48 VERT .77 .37 Dictated by: Dictated on workstation # [id number]
[2021-03-07] MEDS ORDERED: ONDANSETRON 4 MG (ZOFRAN) ORAL DISSOLVE TAB PO PRN (10:15)
[2021-03-07] MEDS ORDERED: DOCUSATE SODIUM 100 MG (COLACE) CAP PO PRN (10:15)
[2021-03-07] MEDS ORDERED: ACETAMINOPHEN 500 MG TAB (TYLENOL) PO PRN (10:15)
[2021-03-07] MEDS ORDERED: RT-ALBUTEROL SULF 2.5 MG/3 ML PRE-MIX VIAL IH PRN (10:15)
[2021-03-07] MEDS ORDERED: diphenhydrAMINE 25 MG TAB (BENADRYL) PO PRN (10:15)
[2021-03-07] MEDS ORDERED: ONDANSETRON 4 MG/2 ML (SDV) Z0FRAN IVP PRN (10:15)
[2021-03-07] MEDS ORDERED: methylPREDNISolone 40 MG/ML (Solu-MEDROL) VIAL IV SCH (10:15)
[2021-03-07] MEDS ORDERED: ALPRAZolam 0.25 MG (XANAX) TAB PO PRN (10:15)
[2021-03-07] MEDS ORDERED: CALCIUM CARBONATE 500 MG (TUMS) TAB.CHEW PO PRN (10:15)
[2021-03-07] MEDS ORDERED: LORATADINE (CLARITIN) 10 MG TAB PO ONE (10:15)
[2021-03-07] MEDS ORDERED: MELATONIN 3 MG TABLET PO PRN (10:15)
[2021-03-07] MEDS ORDERED: HYDROcodone/APAP 5 MG/325 MG (LORTAB) TAB PO PRN (10:15)
--- NOTE | 2021-03-07 10:17 | History & Physical-Hospitalist ---
History of Present Illness HPI/Chief Complaint CC: SOB with elevated Troponin normal cardiac Cath HPI: This is a 70yoWF clinic Pt of [facility] who continues to smoke and has obvious severe emphysema. She wears four liters of oxygen at home, she presented with SOB found to have elevated Troponin cardiac cath was normal so it was demand ischemia. We will restart her home medications and transfer to the floor. She appear to be improved and already asking to go home when she is actively wheezing. I did increase her Solumedrol. Source: patient Exam Limitations: no limitations Date Seen 03/07/21 Time Seen by a Provider: 10:00 Attending Physician Maggy Moody Katrina M MD Referring Physician Date of Admission Home Medications & Allergies Home Medications Reviewed patient Home Medication Reconciliation performed by pharmacy medication reconciliations finishing lab technician and/or nursing. Patients Allergies have been reviewed. Allergies Allergies Coded Allergies No Known Drug Allergies (Unverified12/05/18) Past [id number] Hx Patient Social History Marrital Status: single Employed/Student: retired Tobacco Use?: Yes Tobacco type used: Cigarettes Smoking Status: Current Everyday Smoker Substance use?: No Alcohol Use?: No Pt feels they are or have been: No Seasonal Allergies Seasonal Allergies: No Current Status status: No Advance Directives: No Communicates: Verbally Primary Language: Upper Sorbian Preferred Spoken Language: Upper Sorbian Is interpretation needed?: No Sensory deficits: Vision impairment Implanted or Applied Medical D: None Past Medical History Surgeries: Gallbladder, Tonsillectomy, Tubal Ligation Chronic Bronchitis, COPD, Emphysema Review of Systems Constitutional: see HPI, malaise, weakness EENTM: no symptoms reported Respiratory: dyspnea on exertion Cardiovascular: no symptoms reported Gastrointestinal: no symptoms reported Genitourinary: no symptoms reported Musculoskeletal: no symptoms reported Skin: no symptoms reported Psychiatric/Neurological: No Symptoms Reported All Other Systems Reviewed Negative Unless Noted: Yes Physical Exam Physical Exam Vital Signs Vital Signs - First Documented Capillary Refill : Less Than 3 Seconds Height, Weight, BMI Height: 5'4.00" Weight: 115lbs. oz. 52.979415lc; 18.19 BMI Method:Stated General Appearance: Anxious, Chronically ill, Mild Distress, Thin HEENT: Normal ENT Inspection, Pharynx Normal Neck: Full Range of Motion, Normal Inspection, Non Tender Respiratory: Accessory Muscle Use, Decreased Breath Sounds, Wheezing Cardiovascular: Regular Rate, Rhythm, No Edema, No Gallop, No JVD, No Murmur, Normal Peripheral Pulses Back: Normal Inspection, No CVA Tenderness, No Vertebral Tenderness Extremity: Normal Capillary Refill, Normal Inspection, Normal Range of Motion, Non Tender, No Calf Tenderness, No Pedal Edema Neurologic/Psychiatric: Alert, Oriented x3, No Motor/Sensory Deficits, Normal Mood/Affect Results Results/Procedures Labs Laboratory Tests 03/06/21 09:40 03/07/21 04:40 03/07/21 05:00 Patient resulted labs reviewed. Assessment/Plan Admission Diagnosis Assessment: Acute on chronic respiratory failure Chronic oxygen dependent at 4 L/min at home Current smoker Severe emphysema with barrel chest Cachexia BMI 18 Elevated troponin with normal cardiac catheterization source due to respiratory failure Plan: Moved to fourth floor Increase steroids Add Singulair and Claritin Smoking cessation Admission Status: Inpatient Order (span 2 midnights) Reason for Inpatient Admission: Respiratory insufficiency Diagnosis/Problems Diagnosis/Problems (1) COPD exacerbation Status: Acute (2) Elevated troponin I level Status: Acute MAGGY MOODY DO Mar 07, 2021 10:17
[2021-03-07] MEDS ORDERED: ENOXAPARIN 30 MG/0.3 ML (LOVENOX) SYR SC SCH (11:30)
[2021-03-07] MEDS: RT--FLUTICASONE/SALMETEROL 232-14 (AIRDUO RespiCLICK) IH SCH (18:21)
[2021-03-07] MEDS: SENNA W/DOCUSATE (SENOKOT S) TABLET PO SCH (20:53)
[2021-03-07] MEDS ORDERED: MONTELUKAST 10 MG (SINGULAIR) TAB PO SCH (21:00)
[2021-03-08] MEDS: methylPREDNISolone 40 MG/ML (Solu-MEDROL) VIAL IV SCH ×2 (00:42→06:35)
[2021-03-08] MEDS: RT-ALBUTEROL/IPRATROPIUM 3 ML (DUONEB) VIAL INH SCH ×3 (02:03→10:42)
[2021-03-08 05:39] LABS: BASOPHILS % (AUTO) 0 % (0-10); EOSINOPHILS % (AUTO) 0 % (0-10); HEMATOCRIT 46 % (35-52); HEMOGLOBIN 14.1 g/dL (11.5-16.0); LYMPHOCYTES # (AUTO) 0.3 10^3/uL (1.0-4.0); LYMPHOCYTES % (AUTO) 4 % (12-44); MEAN CORPUSCULAR HEMOGLOBIN 28 pg (25-34); MEAN CORPUSCULAR HGB CONC 31 g/dL (32-36); MEAN CORPUSCULAR VOLUME 92 fL (80-99); MEAN PLATELET VOLUME 11.9 fL (9.0-12.2); MONOCYTES # (AUTO) 0.4 10^3/uL (0.0-1.0); MONOCYTES % (AUTO) 6 % (0-12); NEUTROPHILS # (AUTO) 6.1 10^3/uL (1.8-7.8); NEUTROPHILS % (AUTO) 90 % (42-75); PLATELET COUNT 171 10^3/uL (130-400); WHITE BLOOD COUNT 6.8 10^3/uL (4.3-11.0)
[2021-03-08 05:52] LABS: ALBUMIN 3.5 GM/DL (3.2-4.5); POTASSIUM 3.7 MMOL/L (3.6-5.0)
[2021-03-08 05:53] LABS: CALCIUM 8.6 MG/DL (8.5-10.1)
[2021-03-08 05:55] LABS: TOTAL PROTEIN 5.2 GM/DL (6.4-8.2)
[2021-03-08 05:56] LABS: BILIRUBIN,TOTAL 0.6 MG/DL (0.1-1.0)
[2021-03-08 05:58] LABS: CREATININE SERUM 0.77 MG/DL (0.60-1.30)
[2021-03-08] MEDS: FUROSEMIDE 40 MG/4 ML INJ (LASIX) IVP SCH (06:35)
[2021-03-08] MEDS: RT--FLUTICASONE/SALMETEROL 232-14 (AIRDUO RespiCLICK) IH SCH (07:22)
[2021-03-08] MEDS: ASPIRIN E.C. 81 MG (ECOTRIN) TAB PO SCH (08:31)
[2021-03-08] MEDS: LOSARTAN 25 MG (COZAAR) TAB PO SCH (08:32)
[2021-03-08] MEDS: SENNA W/DOCUSATE (SENOKOT S) TABLET PO SCH (08:32)
[2021-03-08] MEDS: PANTOPRAZOLE 40 MG (PROTONIX) TAB PO SCH (08:32)
--- NOTE | 2021-03-08 08:36 | Cardiology Progress Note ---
Subjective Date Seen by Provider: Mar 08, 2021 Time Seen by Provider: 08:05 Subjective/Events-last exam Patient sitting up at bedside, asking to go home. Denies any chest pain or increased dyspnea. Review of Systems General: No Chills, No Night Sweats, No Fatigue, No Malaise, No Appetite, No Other HEENT: No Head Aches, No Visual Changes, No Eye Pain, No Ear Pain, No Dysphasia, No Sinus Congestion, No Post Nasal Drip, No Sore Throat, No Other Pulmonary: No Dyspnea, No Cough, No Pleuritic Chest Pain, No Other Cardiovascular: No: Chest Pain, Palpitations, Orthopnea, Paroxysmal Noc. Dyspnea, Edema, Lt Headedness, Other Objective-Cardiology Exam Last Set of Vital Signs Vital Signs 03/08/21 03/08/21 08:25 09:00 Temp 36.8 Pulse 81 Resp 18 B/P (MAP) 112/63 Pulse Ox 90 O2 Delivery Nasal Cannula O2 Flow Rate 5.00 I&O Intake and Output 03/08/21 00:00 Intake Total 1190 ml Output Total 2650 ml Balance -1460 ml Intake Oral 1190 ml Output Urine Total 2650 ml General: Alert, Oriented X3, Cooperative HEENT: Atraumatic, PERRLA Neck: Supple, No JVD, No Thyromegaly Lungs: Clear to Auscultation, Normal Air Movement Heart: Regular Rate, Normal S1, Normal S2, No Murmurs Abdomen: Normal Bowel Sounds, Soft, No Tenderness, No Hepatosplenomegaly, No Masses Extremities: No Clubbing, No Cyanosis, No Edema, Normal Pulses, No Tenderness/Swelling Skin: No Rashes, No Breakdown, No Significant Lesion Neuro: Normal Gait, Normal Speech, Strength at 5/5 X4 Ext, Normal Tone, Sensation Intact Psych/Mental Status: Mental Status NL, Mood NL Results Lab Laboratory Tests 03/08/21 05:20 A/P-Cardiology Admission Diagnosis Non-ST elevation myocardial infarction Congestive heart failure Acute exacerbation of COPD Hypertension Assessment/Plan Elevated troponin level, probably type II myocardial infarction secondary to exacerbation of COPD and hypoxemia. Cardiac catheterization showed nonobstructive disease. 2D Echo done showing EF 50-55%, grade 2 diastolic dy sfunction, PA 45-50mmHg. Cardiac catheterization was carried out on March 06, 2021 showing mild coronary artery disease mild to moderate disease in the proximal and mid LAD otherwise nonobstructive disease. Normal left ventricular size and systolic function, ejection fraction 50% Ulcerated plaque at the origin of the right carotid artery/brachiocephalic artery. Carotid ultrasound done yesterday showing mild nonobstructive disease bilaterally. Small to moderate size infrarenal abdominal aortic aneurysm, calcified aortic arch. We will start beta-blockers and monitor Mild to moderate left renal artery stenosis with normal right renal artery. Congestive heart failure, acute, will start diuretics, evaluate 2D echocardiogram. Shortness of breath, acute exacerbation of COPD, oxygen dependent, monitor blood pressure Hypertension, I will start low-dose beta-blockers and evaluate tolerance and response Tobaccoism, educated on smoking cessation. Patient is feeling better, reporting improvement in her symptoms, okay for discharge from cardiology standpoint Supervisory-Addendum Brief Supervisory Addendum Participated in pt care: history, MDM, physical Personally performed: exam, history, MDM Care discussed with: LOWELL Results interpretation: Verified all documentation Notes: Patient was seen and evaluated with Shakeel, examination performed, management plan was discussed, agree with the current scribed note, I made few changes to the note using Italic font Patient was seen at bedside, sitting comfortably, denied any chest pain. No palpitation Breathing is better Discussed with her smoking cessation, arrangement for follow-up as an outpatient Will evaluate carotid ultrasound as an outpatient. SHAKEEL GALLEGO Mar 08, 2021 08:36 GODWIN VAZQUEZ MD Mar 08, 2021 09:57
[2021-03-08] MEDS ORDERED: acetaZOLAMIDE 250 MG (DIAMOX) TAB PO SCH (09:00)
[2021-03-08] MEDS ORDERED: LORATADINE (CLARITIN) 10 MG TAB PO SCH (09:00)
[2021-03-08] MEDS ORDERED: MONT10TA32 PO (10:54)
[2021-03-08] MEDS ORDERED: LOSA25TA41 PO (10:54)
[2021-03-08] MEDS ORDERED: FURO-124 PO (10:54)
[2021-03-08] MEDS ORDERED: LORA10TA7 PO (10:54)
[2021-03-08] MEDS ORDERED: MTP25TSR PO (10:54)
[2021-03-08] MEDS ORDERED: PRED10TA22 PO (10:54)
[2021-03-08] MEDS ORDERED: ACET250T3 PO (10:54)
[2021-03-08] MEDS ORDERED: IPRA3AMP31 INH (10:54)
[2021-03-08] MEDS ORDERED: ASPI-1238 PO (10:54)
[2021-03-08] MEDS ORDERED: PANT40TA52 PO (10:54)
--- NOTE | 2021-03-08 10:56 | Discharge Summary ---
Discharge Summary Hospital Course Was the Problem List Reviewed?: Yes Problems/Dx: (1) COPD exacerbation Status: Acute (2) Elevated troponin I level Status: Acute Hospital Course ,Date of Admission: Admission Diagnosis : Family Physician/Provider: Emily Lopez MD Date of Discharge: 03/08/21 Discharge Diagnosis: Exacerbation of COPD elevated troponin due to demand ischemia, severe emphysema, current smoker Hospital Course: Hospital course: Pt had an uneventful hospital course, she was admitted for chest pain and elevated Troponin, cardiac cath revealed no coronary artery disease that required intervention so it was demand ischemia from acute exacerbation of COPD. She wears oxygen at home at night now and continues to smoke and has severe COPD. She was started on aggressive IV steroids, smoking cessation was counseled Bicarb was 48, placed on Diamox to decrease the effect on the respiratory drive and she will have close follow up with her PCP while remaining on 5 liters of oxygen continuously along with nebulizer treatments. Labs and Pending Lab Test: Laboratory Tests 03/08/21 05:20: White Blood Count 6.8, Red Blood Count 5.00, Hemoglobin 14.1, Hematocrit 46, Mean Corpuscular Volume 92, Mean Corpuscular Hemoglobin 28, Mean Corpuscular Hemoglobin Concent 31L, Red Cell Distribution Width 15.6H, Platelet Count 171, Mean Platelet Volume 11.9, Immature Granulocyte % (Auto) 0, Neutrophils (%) (Auto) 90H, Lymphocytes (%) (Auto) 4L, Monocytes (%) (Auto) 6, Eosinophils (%) (Auto) 0, Basophils (%) (Auto) 0, Neutrophils # (Auto) 6.1, Lymphocytes # (Auto) 0.3L, Monocytes # (Auto) 0.4, Eosinophils # (Auto) 0.0, Basophils # (Auto) 0.0, Immature Granulocyte # (Auto) 0.0, Sodium Level 142, Potassium Level 3.7, Chloride Level 83L, Carbon Dioxide Level 48*H, Anion Gap 11, Blood Urea Nitrogen 21H, Creatinine 0.77, Estimat Glomerular Filtration Rate 75, BUN/Creatinine Ratio 27, Glucose Level 146H, Calcium Level 8.6, Corrected Calcium 9.0, Total Bilirubin 0.6, Aspartate Amino Transf (AST/SGOT) 25, Alanine Aminotransferase (ALT/SGPT) 24, Alkaline Phosphatase 73, Total Protein 5.2L, Albumin 3.5 Microbiology 03/06/21 Blood Culture - Preliminary, Resulted No growth 03/06/21 MRSA Screen - Final, Complete MRSA not isolated Home Meds Active Prednisone 10 Mg Tab.ds.pk 10 Mg PO DAILY Take 6 tabs(60mg)daily,decrease by 1 tab(10mg)every other day. Lasix (Furosemide) 40 Mg Tablet 40 Mg PO Q48H Pantoprazole Sodium 40 Mg Tablet.dr 40 Mg PO DAILY Acetazolamide 250 Mg Tablet 250 Mg PO BID Montelukast Sodium 10 Mg Tablet 10 Mg PO HS Aspirin EC (Aspirin) 81 Mg Tablet.dr 81 Mg PO DAILY Losartan Potassium 25 Mg Tablet 25 Mg PO DAILY Metoprolol Succinate 25 Mg Tab.er.24h 25 Mg PO DAILY Iprat-Albut 0.5-3(2.5) mg/3 ml (Ipratropium/Albuterol Sulfate) 3 Ml Ampul.neb 3 Ml INH RTQ4HR Loratadine 10 Mg Tablet 10 Mg PO DAILY Proair Hfa (Albuterol Sulfate) 1 Puff Puff 2 Puff IH Q4H PRN 30 Days 1 PUFF = 90 MCG Symbicort 160-4.5 Mcg Inhaler (Budesonide/Formoterol Fumarate) 10.2 Gm Hfa.aer.ad 2 Puff IH BID 30 Days Assessment/Pt Instructions PCP in 1 week Discharge Planning: <30 minutes discharge planning Discharge Instructions Discharge Diet: No Restrictions Activity as Tolerated: Yes Discharge Physical Examination Vital Signs Vital Signs Date Time Temp Pulse Resp B/P (MAP) Pulse Ox O2 Delivery O2 Flow Rate FiO2 03/08/21 10:42 94 Nasal Cannula 4.50 03/08/21 08:25 36.8 81 18 112/63 General Appearance: No Apparent Distress, WD/WN, Chronically ill, Thin Respiratory: No Accessory Muscle Use, No Respiratory Distress, Wheezing (Subtle but much improved) Allergies: Coded Allergies: No Known Drug Allergies (Unverified , 12/05/18) Discharge Summary Date of Admission Date of Discharge Discharge Date: Mar 08, 2021 Admission Diagnosis Assessment: Acute on chronic respiratory failure Chronic oxygen dependent at 4 L/min at home Current smoker Severe emphysema with barrel chest Cachexia BMI 18 Elevated troponin with normal cardiac catheterization source due to respiratory failure Plan: Moved to fourth floor Increase steroids Add Singulair and Claritin Smoking cessation Discharge Diagnosis (1) COPD exacerbation Status: Acute (2) Elevated troponin I level Status: Acute SPIKE MORALES DO Mar 08, 2021 10:56
--- NOTE | 2021-03-08 12:27 | Progress Note ---
MARIELA PRESTON 03/08/21 1227: Progress Note Ms. Merlos is a 70 y/o female with a PMHx of COPD, controlled on respiratory medications, who presented to the ED on 06 March with a chief complaint of progessive SOB over the last week with a cough and sputum production. She said that over the last week she also had increased swelling to her B/L LE with drainage from her RLE d/t swelling. She states that she had chest tightness and difficulty breathing. She had an oxygen saturation of around 68% on the ED. She does not have the Covid vaccine. She denied fever, chills, sore throat, body aches, or diarrhea at that time. Her labs showed an elevated troponin and BNP prompting a cardiology consult. Dr. Walls saw the patient and decided to do a cardiac cath. He found mild to moderate disease in the proximal and mid LAD which was nonobstructive and no otherwise significant CAD. Her SOB was deemed to be demand ischemia. She was started on Solumedrol and her lungs greatly improved from yesterday to today. Today the patient was alert with no complaints and was ready to go home. She denied a cough, SOB, fatigue, and chills. She had minor leg swelling and wheezing upon physical exam. MAGGY MORALES DO 03/09/21 0608: Supervisory-Addendum Brief Verification & Attestation Participated in pt care: history, MDM, physical Personally performed: exam, history, MDM, supervision of care Care discussed with: Medical Student Procedures: n/a Results interpretation: Verified all documentation Verification and Attestation of Medical Student E/M Service A medical student performed and documented this service in my presence. I reviewed and verified all information documented by the medical student and made modifications to such information, when appropriate. I personally performed the physical exam and medical decision making. Maggy Morales Mar 09, 2021,06:08 MARIELA PRESTON Mar 08, 2021 12:27 MAGGY MORALES DO Mar 09, 2021 06:08
== END 2021-03-08 12:25 | disposition home or self-care (01) ==
LOC: EDUNIT# 09:31 → ER 09:33 → CATH 11:19 → ICU 13:06 → SUATTDRO 03-07 06:40 → 4TH 03-07 15:13 → CATH 03-08 12:25
PROVIDERS: ATTEND Internal Medicine
DX: I25.10 Atherosclerotic heart disease of native coronary artery without angina pectoris (principal); I65.21 Occlusion and stenosis of right carotid artery; I71.4 Abdominal aortic aneurysm, without rupture; I70.1 Atherosclerosis of renal artery; R77.8 Other specified abnormalities of plasma proteins; I50.9 Heart failure, unspecified; I11.0 Hypertensive heart disease with heart failure; J44.1 Chronic obstructive pulmonary disease with (acute) exacerbation; I21.4 Non-ST elevation (NSTEMI) myocardial infarction; F17.210 Nicotine dependence, cigarettes, uncomplicated; Z98.51 Tubal ligation status; Z90.89 Acquired absence of other organs; Z79.899 Other long term (current) drug therapy
CPT/HCPCS: 36221; 71045; 75625; 80053 ×3; 82947; 83880 ×2; 84145; 84484; 85025 ×3; 85027; 87040; 87081; 93005 ×2; 93306; 93458; 93880; 94640 ×4; 94760; 94761; 96374; 99285; C1894; G0378; 36415

== ENCOUNTER 2022-03-01 13:41 | Inpatient (IN) | payer MEDICARE ==
[~2022-03-01] VITALS: Ht 157 cm; Wt 46.2 kg
[~2022-03-01 13:41] MED LIST changes: +ACET250T3 PO; +ALBU8.5H6 IH; +ASPI-1238 PO; +BUDE10.2 IH; +FURO-124 PO; +IPRA3AMP31 INH; +LORA10TA7 PO; +LOSA25TA41 PO; +MONT-40 PO; +MTP25TSR PO; +PANT40TA52 PO; +PRED10TA22 PO
[2022-03-01] MEDS ORDERED: NS IV 1000 ML 1,000 ML IV STA ×2 (13:46→16:19)
[2022-03-01] MEDS ORDERED: KETOROLAC 15 MG/ML VIAL IVP STA (13:46)
--- NOTE | 2022-03-01 14:06 | ED Fall/Injury ---
General Chief Complaint: General Problems/Pain Stated Complaint: SYNCOPAL EPISODE Nursing Triage Note: Patient has been brought to ER with cc of right shoulder right hip pain. Per EMS reports patient fell from a standing position at home. Source: patient, EMS History of Present Illness Date Seen by Provider: Mar 01, 2022 Time Seen by Provider: 13:41 Initial Comments 71-year-old female presenting with EMS from home. EMS reports that they were advised that she had a fall from a standing position and then complained of right shoulder and hip pain. They had administered 25 mcg of fentanyl along with Zofran and patient has been less responsive and more somnolent since the narcotic. EMS reports the patient has not 5 L of oxygen per minute by nasal cannula. They state that she was more spry and talkative prior to the fentanyl. Patient is breathing on her own and has her eyes open but is not answering questions. Occurred: just prior to arrival Injuries/Pain Location: upper extremity (Right upper arm), lower extremity (Right hip) Context: unknown Loss of Consciousness: no loss of consciousness Modifying Factors: Worse With Movement; Improves With Pain Medication Associated Symptoms (Fall): No Abdominal Pain, No Chest Pain, No Nausea/Vomiting, No Neck Pain Allergies and Home Medications Allergies Coded Allergies: No Known Drug Allergies (Unverified , 12/05/18) Patient Home Medication List Home Medication List Reviewed: Yes Acetazolamide (Acetazolamide) 250 Mg Tablet, 250 MG PO BID Prescribed by: SPIKE MORALES on 03/08/21 1054 Albuterol Sulfate (Ventolin Hfa) 1 Puff Puff, 2 PUFF IH Q4H PRN for SHORTNESS OF BREATH Prescribed by: CHRIST ELAM on 03/06/21 1327 Aspirin (Aspirin EC) 81 Mg Tablet.dr, 81 MG PO DAILY Prescribed by: SPIKE MORALES on 03/08/21 1054 Budesonide/Formoterol Fumarate (Symbicort 160-4.5 Mcg Inhaler) 10.2 Gm Hfa.aer.ad, 2 PUFF IH BID Prescribed by: CHRIST ELAM on 03/06/21 1324 Furosemide (Lasix) 40 Mg Tablet, 40 MG PO Q48H Prescribed by: SPIKE MORALES on 03/08/21 1054 Ipratropium/Albuterol Sulfate (Iprat-Albut 0.5-3(2.5) mg/3 ml) 3 Ml Ampul.neb, 3 ML INH RTQ4HR Prescribed by: SPIKE MORALES on 03/08/21 105 Loratadine (Loratadine) 10 Mg Tablet, 10 MG PO DAILY Prescribed by: SPIKE MORALES on 03/08/21 105 Losartan Potassium (Losartan Potassium) 25 Mg Tablet, 25 MG PO DAILY Prescribed by: SPIKE MORALES on 03/08/21 105 Metoprolol Succinate (Metoprolol Succinate) 25 Mg Tab.er.24h, 25 MG PO DAILY Prescribed by: SPIKE MORALES on 03/08/21 105 Montelukast Sodium (Montelukast Sodium) 10 Mg Tablet, 10 MG PO HS Prescribed by: SPIKE MORALES on 03/08/21 105 Pantoprazole Sodium (Pantoprazole Sodium) 40 Mg Tablet.dr, 40 MG PO DAILY Prescribed by: SPIKE MORALES on 03/08/21 105 Prednisone (Prednisone) 10 Mg Tab.ds.pk, 10 MG PO DAILY Prescribed by: SPIKE MORALES on 03/08/21 105 Review of Systems Review of Systems Constitutional: No chills; dizziness (family reports pt has been dizzy due to hard wax in right ear canal); No fever Unable to answer questions due to somnolence from pain medicine. unable to obtain ROS due to her somnolence with narcotic. Past Sxyzdwh-Zxnagg-Lpqinp Hx Patient Social History Tobacco Use?: Yes Tobacco type used: Cigarettes Smoking Status: Current Everyday Smoker Use of E-Cig and/or Vaping dev: Unable to obtain Substance use?: Unable to obtain Alcohol Use?: Unable to obtain Seasonal Allergies Seasonal Allergies: No Past Medical History Surgery/Hospitalization HX: TUBAL LIGATION, JERAD, CATARACTS REMOVED, BILATERAL, COPD Surgeries: Yes Gallbladder, Tonsillectomy, Tubal Ligation Respiratory: Yes Chronic Bronchitis, COPD, Emphysema Cardiac: No Neurological: No Genitourinary: No Gastrointestinal: No Musculoskeletal: No Endocrine: No HEENT: No Cancer: No Psychosocial: No Integumentary: No Physical Exam Vital Signs Vital Signs - First Documented 03/01/22 13:52 Temp 34.6 Pulse 82 Resp 20 B/P (MAP) 75/40 (52) Pulse Ox 94 O2 Delivery Nasal Cannula O2 Flow Rate 6.00 Capillary Refill : Height, Weight, BMI Height: 5'4.00" Weight: 115lbs. oz. 52.178695lv; 18.19 BMI Method:Stated General Appearance: cachetic HEENT: PERRL/EOMI Cardiovascular: normal peripheral pulses, regular rate, rhythm Respiratory: chest non-tender, no respiratory distress, no accessory muscle use, decreased breath sounds Gastrointestinal: normal bowel sounds, non tender, soft, no pulsatile mass Extremities: other (pain with palpation and PROM right shoulder/ hip) Neurologic/Psychiatric: alert (she has her eyes open but moves her head slowly to look around but is not answering questions) Skin: cool Mi Coma Score Best Eye Response: (4) Open Spontaneously Best Verbal Response: (2) Incomprehsible Sounds Best Motor Response: (5) Localizes to Pain [place] Total: 11 Progress/Results/Core Measures Results/Orders Lab Results Laboratory Tests Test 03/01/22 15:26 03/01/22 15:30 03/01/22 16:00 Range/Units Glucometer 90 70-110 MG/DL White Blood Count 15.2 H 4.3-11.0 10^3/uL Red Blood Count 3.57 L 3.80-5.11 10^6/uL Hemoglobin 10.4 L 11.5-16.0 g/dL Hematocrit 37 35-52 % Mean Corpuscular Volume 105 H 80-99 fL Mean Corpuscular Hemoglobin 29 25-34 pg Mean Corpuscular Hemoglobin Concent 28 L 32-36 g/dL Red Cell Distribution Width 14.1 10.0-14.5 % Platelet Count 196 130-400 10^3/uL Mean Platelet Volume 11.0 9.0-12.2 fL Immature Granulocyte % (Auto) 1 % Neutrophils (%) (Auto) 92 H 42-75 % Lymphocytes (%) (Auto) 3 L 12-44 % Monocytes (%) (Auto) 5 0-12 % Eosinophils (%) (Auto) 0 0-10 % Basophils (%) (Auto) 0 0-10 % Neutrophils # (Auto) 13.9 H 1.8-7.8 10^3/uL Lymphocytes # (Auto) 0.4 L 1.0-4.0 10^3/uL Monocytes # (Auto) 0.7 0.0-1.0 10^3/uL Eosinophils # (Auto) 0.0 0.0-0.3 10^3/uL Basophils # (Auto) 0.0 0.0-0.1 10^3/uL Immature Granulocyte # (Auto) 0.1 0.0-0.1 10^3/uL Neutrophils % (Manual) 89 % Lymphocytes % (Manual) 4 % Monocytes % (Manual) 2 % Eosinophils % (Manual) 0 % Basophils % (Manual) 0 % Band Neutrophils 5 % Sodium Level 148 H 135-145 MMOL/L Potassium Level 5.5 H 3.6-5.0 MMOL/L Chloride Level 102 98-107 MMOL/L Carbon Dioxide Level 44 H 21-32 MMOL/L Anion Gap 2 L 5-14 MMOL/L Blood Urea Nitrogen 32 H 7-18 MG/DL Creatinine 0.56 L 0.60-1.30 MG/DL Estimat Glomerular Filtration Rate 99 BUN/Creatinine Ratio 57 Glucose Level 101 70-105 MG/DL Calcium Level 8.9 8.5-10.1 MG/DL Corrected Calcium 9.5 8.5-10.1 MG/DL Total Bilirubin 0.6 0.1-1.0 MG/DL Aspartate Amino Transf (AST/SGOT) 20 5-34 U/L Alanine Aminotransferase (ALT/SGPT) 20 0-55 U/L Alkaline Phosphatase 197 H 40-136 U/L Total Protein 5.5 L 6.4-8.2 GM/DL Albumin 3.2 3.2-4.5 GM/DL Urine Color YELLOW Urine Clarity CLEAR Urine pH 5.5 5-9 Urine Specific [place] >=1.030 1.016-1.022 Urine Protein 1+ H NEGATIVE Urine Glucose (UA) NEGATIVE NEGATIVE Urine Ketones NEGATIVE NEGATIVE Urine Nitrite NEGATIVE NEGATIVE Urine Bilirubin NEGATIVE NEGATIVE Urine Urobilinogen 1.0 < = 1.0 MG/DL Urine Leukocyte Esterase NEGATIVE NEGATIVE Urine RBC (Auto) NEGATIVE NEGATIVE Urine RBC NONE /HPF Urine WBC 0-2 /HPF Urine Squamous Epithelial Cells 0-2 /HPF Urine Crystals NONE /LPF Urine Bacteria NEGATIVE /HPF Urine Casts NONE /LPF Urine Mucus NEGATIVE /LPF Urine Culture Indicated NO My Orders Orders - NIYAH BUSTILLO MD Ns Iv 1000 Ml (Sodium Chloride 0.9%) (03/01/22 13:46) Ketorolac Injection (Toradol Injection) (03/01/22 13:46) Humerus 2 View Right (03/01/22 13:46) Pelvis With Right Hip 2-3 View (03/01/22 13:46) Naloxone Injection (Narcan Injection) (03/01/22 15:18) Cbc With Automated Diff (03/01/22 15:37) Comprehensive Metabolic Panel (03/01/22 15:37) O2 (03/01/22 15:37) Ed Iv/Invasive Line Start (03/01/22 15:37) Monitor-Rhythm Ecg Trace Only (03/01/22 15:37) Ct Head Wo (03/01/22 15:37) Ua Culture If Indicated (03/01/22 15:37) Straight Cath For Spec.-Adult (03/01/22 15:37) Manual Differential (03/01/22 15:30) Ns Iv 1000 Ml (Sodium Chloride 0.9%) (03/01/22 16:19) Arterial Blood Gas (03/01/22 16:21) Bipap (Bilevel) Set Up (03/01/22 17:58) Chest 1 View Ap/Pa Only (03/01/22 18:41) Code/Resuscitation (03/01/22 18:44) Ed Admission (Communication) (03/01/22 18:49) Lactated Ringers (Lr 1000 Ml Iv Solution (03/01/22 19:00) Vital Signs/I&O 03/01/22 03/01/22 03/01/22 03/01/22 13:52 14:12 16:11 18:55 Temp 34.6 Pulse 82 75 Resp 20 18 B/P (MAP) 75/40 (52) 92/47 (62) 81/36 Pulse Ox 94 99 94 92 O2 Delivery Nasal Cannula Nasal Cannula Nasal Cannula NIV CPAP O2 Flow Rate 6.00 5.00 5.00 60.00 Blood Pressure Mean: 52 Progress Progress Note #1: Progress Note Give normal saline IV fluid bolus 1 L to help with blood pressure of 75 systolic which is likely due to the fentanyl. Keep on supplemental oxygen to help with her O2. Obtain x-rays of the right humerus and the pelvis with right hip to look for signs of fracture. Give Toradol 15 mg IV to try and help with additional pain while avoiding narcotic. Progress Note #2: Progress Note X-rays of the right humerus and pelvis with right hip did not demonstrate any acute fracture or bony abnormality. The patient continued to become more somnolent. As she was more somnolent it was felt that it could be related still back to the fentanyl since she is such a small statured woman along with the COPD. Initially considered trying to get her home if we could get her to wake up some more and let her finish sleeping off the fentanyl. However when she was not waking up to painful stimuli a dose of Narcan was ordered to try. She also continued to have some relative hypotension. Reviewing her old records her blood pressure tended to run 100 systolic up to 120 systolic. Here she has gotten up to 113 systolic with a fluid bolus. Otherwise she has been running 80-90 for her systolic blood pressure. Add on labs and urine to look for signs of infection or electrolyte imbalance or anemia to contribute to her symptoms. Progress Note #3: Progress Note DidLabs showed elevated white blood cell count of 15.2 and stable chronic anemia with a hemoglobin of 10.4. Slight left shift with elevated white blood cell count however she had no specific source of infection. Her urine was not showing infection when the cath specimen was obtained. She did have elevated CO2 on her chemistry but appears similar to previous labs. Her anion gap was slightly lower than normal. Her anion gap tonight was 2 and usually she runs 6- 10. An ABG was added onto her test to look for hypercapnia and a CT scan of her head to look for signs of head trauma or stroke or intracranial hemorrhage. Progress Note #4: Progress Note CT scan of the head did not demonstrate any acute process to account for her symptoms. Her ABG initially then difficulty obtaining and then lab called and said that they did not have enough specimen. We will have the nurses try again and if unable to get arterial definitely send a venous blood gas. Also start the patient on BiPAP preemptively in case this was hypercapnia respiratory failure. Progress Note #5: Progress Note ABG had shown elevated CO2 or lab called and said it was too high to calculate. pH was 7.08. PO2 sat was 67. This would go a venous specimen. She has been consistently in the mid upper 90% range on her home oxygen at 5 L/min. Bipap was started at 12/5 with rate of 16 and FiO2 50% with order to titrate above 90% sats. Will try to reach Dr. Lizarraga with Hospitalist service about admit of patient now that have some values for CO2. Progress Note #6: Progress Note 1842 d/w Dr. Lizarraga about patient and her elevated CO2 with end stage COPD. [place] to have a mechanical fall today at home and then less responsive since receiving Fentanyl 25 mcg. She has progressively become less responsive and at times had hypotenstion, especially if not getting IVF. Family advised the nurses patient is a DNR. They were agreeable to having BiPap and admit to try and get her better. They were also agreeable to pressors to help with low blood pressure if needed but did not want intubation or resuscitation if her heart stops. Will admit to ICU for BiPap and see if she improves with blowing off some CO2. In terms of her elevated white blood cell count since there was no specific source of infection will defer on blood cultures unless she spikes a fever. Dr. Lizarraga stated that he would place queued orders for the patient. I will call the attending for the eICU team that will be helping manage her overnight. 1850 discussed with the eICU team about the patient. Given a summary of what had transpired throughout the afternoon. They did want to clarify that it was okay to use pressors for the patient. Family had stated that they were okay with using vasopressors if needed to help with her blood pressure. Diagnostic Imaging Diagonstic Imaging: Xray Plain Films/CT/US/NM/MRI: pelvis, hip Comments [facility]. [place], [place] NAME: TANO CORRALES [facility] REC#: [id number] PT STATUS: REG ER : 1950 PHYSICIAN: NIYAH BUSTILLO MD ADMIT DATE: 03/01/22/ER FS Signed Date of Exam:03/01/22 PELVIS WITH RIGHT HIP 2-3 VIEW EXAMINATION: Pelvis and right hip radiograph EXAM DATE: 03/01/2022 2:07 PM COMPARISON: None available. HISTORY: Right hip pain after fall TECHNIQUE: 3 views FINDINGS: There is no acute fracture, dislocation, or destructive osseous process. The joint spaces are normal. The soft tissues are normal. IMPRESSION: 1. No acute osseous abnormality. Dictated by: Dictated on workstation # [id number] Dict: 03/01/22 1410 Trans: 03/01/[address] [place] [address] [id number] Interpreted by: LIBIA RODRIGUEZ DO Electronically signed by: LIBIA RODRIGUEZ DO 03/01/221429 Diagonstic Imaging: Xray Plain Films/CT/US/NM/MRI: other (right arm/humerus) Comments [facility] [place] [place] NAME: TANO CORRALES [facility] REC#: [id number] PT STATUS: REG ER : 1950 PHYSICIAN: NIYAH BUSTILLO MD ADMIT DATE: 03/01/22/ER FS Signed Date of Exam:03/01/22 HUMERUS 2 VIEW RIGHT EXAMINATION: Right humerus radiograph. EXAM DATE: 03/01/2022, 2:07 p.m. COMPARISON: None available. HISTORY: Right arm pain after fall. TECHNIQUE: Two views. FINDINGS: There is no acute fracture, dislocation, or destructive osseous process. The joint spaces are normal. The soft tissues are normal. IMPRESSION: 1. No acute osseous abnormality. Dictated by: Dictated on workstation # [id number] Dict: 03/01/221409 Trans: 03/01/221429 [id number] Interpreted by: LIBIA RODRIGUEZ DO Electronically signed by: LIBIA RODRIGUEZ DO 03/01/221429 Diagonstic Imaging: CT Plain Films/CT/US/NM/MRI: head Comments [facility] [place] NAME: TANO CORRALES [facility] REC#: [id number] PT STATUS: REG ER : 1950 PHYSICIAN: NIYAH BUSTILLO MD ADMIT DATE: 03/01/22/ER FS Signed Date of Exam:03/01/22 CT HEAD WO PROCEDURE: CT head without contrast. TECHNIQUE: Multiple contiguous axial images were obtained through the brain without the use of intravenous contrast. Auto Exposure Controls were utilized during the CT exam to meet ALARA standards for radiation dose reduction. INDICATION: 71-year-old female with altered mental status. COMPARISONS: None. FINDINGS: Midline structures are not displaced. Lateral, third and fourth ventricles are normal in size, shape and anatomic position. There is no mass, mass effect, hydrocephalus or hemorrhage. Jeffers-white differentiation is normal. Some background chronic areas of microvascular ischemic change. There is no sulcal effacement. There are no abnormal extra-axial fluid collections or hemorrhage. Basilar cisterns appear normal. Sinuses, orbits and mastoid air cells are unremarkable. Bone windows show no calvarial changes. IMPRESSION: Unremarkable nonenhanced CT brain. If symptoms warrant or persist, an MRI may be of further value. Dictated by: Dictated on workstation # [id number] Dict: 03/01/22 1607 Trans: 03/01/22 1617 AS6 [id number] Interpreted by: EFRAIN AWAD MD Electronically signed by: EFRAIN AWAD MD 03/01/221616 Diagonstic Imaging: Xray Plain Films/CT/US/NM/MRI: chest Comments [facility] [place] NAME: TANO CORRALES [facility] REC#: [id number] PT STATUS: REG ER : 1950 PHYSICIAN: NIYAH BUSTILLO MD ADMIT DATE: 03/01/22/ER FS Draft Date of Exam:03/01/22 CHEST 1 VIEW AP/PA ONLY INDICATION: Decreased responsiveness and hypercapnia. TECHNIQUE: Portable AP views of the chest are obtained. COMPARISON: 03/06/2021. FINDINGS: There is bilateral air trapping. Prominent interstitial markings have increased. There is small amount of bilateral pleural fluid. Overall heart size is within normal limits. IMPRESSION: Increasing interstitial markings and mild bilateral pleural fluid in setting of background emphysema. This may reflect pulmonary edema or pneumonitis. Acute-onset pulmonary edema related to myocardial infarct is not excluded. Dictated on workstation # [id number] Dict: 03/01/22 1853 Trans: 03/01/22 1900 AS6 [id number] Interpreted by: KIKI NOEL MD Electronically signed by: Critical Care Note Critical Care Total Time (minutes) 90 minutes Progress 90 minutes of critical care time was spent with the patient. Time excludes separately billable procedures. Time included discussion with EMS, patient's family, history was obtained from EMS and patient's family as patient was not able to answer questions, ordering tests and reviewing results, ordering interventions and reviewing response, discussion with consultants, documentation in the chart. Patient was having altered mental status with compromised hemodynamic status and found to be hypercapnic. She was at risk of and cardiovascular collapse from her illness. Departure Communication (Admissions) Time/Spoke to Admitting Phy: 18:42 d/w Dr. Lizarraga for hospitalist service and he accepted pt for admit to ICU for hypercapneic respiratory failure. Will continue with BiPap and check with E-ICU for them to help follow her overnight. If she spikes a fever will add on blood cultures but at this point her leukocytosis may be more stress related as she does not have a focal source of infection. Time/Spoke to Consulting Phy: 18:51 D/w doctor on for [facility] E-ICU so they knew some background on the patient coming to ICU in [place]. Advised that she had elevated CO2 level and decreased responsiveness. It is ok to use Pressors if needed to help with her blood pressure. Impression Primary Impression: Acute respiratory failure with hypoxia and hypercarbia Additional Impressions: Contusion of shoulder, right Qualified Codes: S40.011A - Contusion of right shoulder, initial encounter Contusion of right hip, initial encounter Fall at home Qualified Codes: W19.XXXA - Unspecified fall, initial encounter; Y92.009 - Unspecified place in unspecified non-institutional (private) residence as the place of occurrence of the external cause Disposition: 30 STILL A PATIENT Condition: Critical Admissions Decision to Admit Reason: Admit from ER (General) Decision to Admit/Date: Mar 01, 2022 Time/Decision to Admit Time: 18:42 Departure-Patient Inst. Referrals: UMBERTO PITTS MD (PCP) Primary Care Physician Patient Instructions: Hip Pain ED, Preventing Falls ED, Shoulder Pain ED Add. Discharge Instructions: No broken bones seen on xrays of right arm/shoulder or the pelvis and right hip. Stay well hydrated and try Acetaminophen 650 mg every 6 hours as needed for pain. May alternate ice and heat to the shoulder and hip to try and help with pain and contusion. Check back with primary care for continued concerns. All discharge instructions reviewed with patient and/or family. Voiced understanding. NIYAH BUSTILLO MD Mar 01, 2022 14:06
--- NOTE | 2022-03-01 14:13 | Diagnostic Imaging Report ---
EXAMINATION: Pelvis and right hip radiograph EXAM DATE: 03/01/2022 2:07 PM COMPARISON: None available. HISTORY: Right hip pain after fall TECHNIQUE: 3 views FINDINGS: There is no acute fracture, dislocation, or destructive osseous process. The joint spaces are normal. The soft tissues are normal. IMPRESSION: 1. No acute osseous abnormality. Dictated by: Dictated on workstation # [id number]
--- NOTE | 2022-03-01 14:13 | Diagnostic Imaging Report ---
EXAMINATION: Right humerus radiograph. EXAM DATE: 03/01/2022, 2:07 p.m. COMPARISON: None available. HISTORY: Right arm pain after fall. TECHNIQUE: Two views. FINDINGS: There is no acute fracture, dislocation, or destructive osseous process. The joint spaces are normal. The soft tissues are normal. IMPRESSION: 1. No acute osseous abnormality. Dictated by: Dictated on workstation # [id number]
[2022-03-01] MEDS ORDERED: NALOXONE 0.4 MG/ML 1 ML (NARCAN) VIAL IV STA (15:18)
[2022-03-01 15:44] LABS: BASOPHILS % (AUTO) 0 % (0-10); EOSINOPHILS % (AUTO) 0 % (0-10); HEMATOCRIT 37 % (35-52); HEMOGLOBIN 10.4 g/dL (11.5-16.0); LYMPHOCYTES # (AUTO) 0.4 10^3/uL (1.0-4.0); LYMPHOCYTES % (AUTO) 3 % (12-44); MEAN CORPUSCULAR HEMOGLOBIN 29 pg (25-34); MEAN CORPUSCULAR HGB CONC 28 g/dL (32-36); MEAN CORPUSCULAR VOLUME 105 fL (80-99); MONOCYTES # (AUTO) 0.7 10^3/uL (0.0-1.0); MONOCYTES % (AUTO) 5 % (0-12); NEUTROPHILS # (AUTO) 13.9 10^3/uL (1.8-7.8); NEUTROPHILS % (AUTO) 92 % (42-75); PLATELET COUNT 196 10^3/uL (130-400); WHITE BLOOD COUNT 15.2 10^3/uL (4.3-11.0)
[2022-03-01 16:00] LABS: CREATININE SERUM 0.56 MG/DL (0.60-1.30); POTASSIUM 5.5 MMOL/L (3.6-5.0)
[2022-03-01 16:01] LABS: ALBUMIN 3.2 GM/DL (3.2-4.5); BILIRUBIN,TOTAL 0.6 MG/DL (0.1-1.0); CALCIUM 8.9 MG/DL (8.5-10.1); TOTAL PROTEIN 5.5 GM/DL (6.4-8.2)
[2022-03-01 16:15] LABS: BILIRUBIN,URINE NEGATIVE (NEGATIVE); CLARITY,URINE CLEAR; COLOR,URINE YELLOW; GLUCOSE, URINE (UA) NEGATIVE (NEGATIVE); KETONES,URINE NEGATIVE (NEGATIVE); LEUKOCYTE ESTERASE ,URINE NEGATIVE (NEGATIVE); NITRITE,URINE NEGATIVE (NEGATIVE); PH,URINE 5.5 (5-9); PROTEIN,URINE 1+ (NEGATIVE)
--- NOTE | 2022-03-01 16:18 | Diagnostic Imaging Report ---
PROCEDURE: CT head without contrast. TECHNIQUE: Multiple contiguous axial images were obtained through the brain without the use of intravenous contrast. Auto Exposure Controls were utilized during the CT exam to meet ALARA standards for radiation dose reduction. INDICATION: 71-year-old female with altered mental status. COMPARISONS: None. FINDINGS: Midline structures are not displaced. Lateral, third and fourth ventricles are normal in size, shape and anatomic position. There is no mass, mass effect, hydrocephalus or hemorrhage. Jeffers-white differentiation is normal. Some background chronic areas of microvascular ischemic change. There is no sulcal effacement. There are no abnormal extra-axial fluid collections or hemorrhage. Basilar cisterns appear normal. Sinuses, orbits and mastoid air cells are unremarkable. Bone windows show no calvarial changes. IMPRESSION: Unremarkable nonenhanced CT brain. If symptoms warrant or persist, an MRI may be of further value. Dictated by: Dictated on workstation # [id number]
[2022-03-01 16:21] LABS: BACTERIA,URINE NEGATIVE /HPF; SQUAMOUS EPITHELIAL CELL,UR 0-2 /HPF; WBC,URINE 0-2 /HPF
[2022-03-01 16:29] LABS: BAND NEUTROPHILS 5 %; BASOPHILS % (MANUAL) 0 %; EOSINOPHILS % (MANUAL) 0 %; LYMPHOCYTES % (MANUAL) 4 %; MONOCYTES % (MANUAL) 2 %; NEUTROPHILS % (MANUAL) 89 %
--- NOTE | 2022-03-01 19:00 | Diagnostic Imaging Report ---
INDICATION: Decreased responsiveness and hypercapnia. TECHNIQUE: Portable AP views of the chest are obtained. COMPARISON: 03/06/2021. FINDINGS: There is bilateral air trapping. Prominent interstitial markings have increased. There is small amount of bilateral pleural fluid. Overall heart size is within normal limits. IMPRESSION: Increasing interstitial markings and mild bilateral pleural fluid in setting of background emphysema. This may reflect pulmonary edema or pneumonitis. Acute-onset pulmonary edema related to myocardial infarct is not excluded. Dictated by: Dictated on workstation # [id number]
[2022-03-01] MEDS: LACTATED RINGERS 1,000 ML IV SCH ×2 (19:14→23:55)
[2022-03-01] MEDS ORDERED: MELATONIN 3 MG TABLET PO PRN (20:45)
[2022-03-01] MEDS ORDERED: ACETAMINOPHEN 325 MG TABLET PO PRN (20:45)
[2022-03-01] MEDS ORDERED: ONDANSETRON 4 MG (ZOFRAN) ORAL DISSOLVE TAB PO PRN (20:45)
[2022-03-01] MEDS ORDERED: BISACODYL 10 MG SUPP (DULCOLAX) PR PRN (20:45)
[2022-03-01] MEDS ORDERED: ANTACID SUSP 30 ML UDC (MYLANTA) PO PRN (20:45)
[2022-03-01] MEDS ORDERED: methylPREDNISolone 125 MG (Solu-MEDROL) VIAL IM ONE (20:45)
[2022-03-01] MEDS ORDERED: NS IV 500 ML 500 ML IV PRN (20:45)
[2022-03-01] MEDS ORDERED: ONDANSETRON 4 MG/2 ML (SDV) Z0FRAN IV PRN (20:45)
[2022-03-01] MEDS ORDERED: polyethylene glycoL POWDER 17 GM (MIRALAX) PACK PO PRN (20:45)
[2022-03-01 21:14] LABS: ABG BASE EXCESS 15.8 MMOL/L (-2.5-2.5); ABG OXYGEN SATURATION 100 % (94-100); ABG PO2 151 MMHG (79-93)
[2022-03-01 21:16] LABS: ALLENS TEST YES-POS; INSPIRED O2 65%; PATIENT TEMP 37.1; VENTILATOR NO
[2022-03-01 21:18] LABS: ABG PCO2 124 MMHG (35-45); ABG PH 7.18 (7.37-7.43); ABG TCO2 48.2 MMOL/L (21.0-31.0)
[2022-03-01] MEDS ORDERED: NOREPINEPHRINE 8 MG/250 ML 250 ML IV ONE (21:29)
[2022-03-01] MEDS ORDERED: RT-ALBUTEROL/IPRATROPIUM 3 ML (DUONEB) VIAL INH PRN (21:30)
[2022-03-01] MEDS ORDERED: NOREPINEPHRINE 8 MG/250 ML 250 ML IV SCH (21:30)
[2022-03-01] MEDS ORDERED: RT-ALBUTEROL/IPRATROPIUM 3 ML (DUONEB) VIAL ONE (21:35)
[2022-03-01 21:39] VITALS: BP 81/35
[2022-03-01] MEDS: RT-ALBUTEROL/IPRATROPIUM 3 ML (DUONEB) VIAL INH SCH (21:40)
[2022-03-01] MEDS: DOCUSATE SODIUM 100 MG (COLACE) CAP PO SCH (22:00)
--- NOTE | 2022-03-01 22:08 | Tele-ICU Progress Note ---
Progress Note 71F with COPD on home O2 initially presented to [facility] after fall from standing position. In ED c/o right shoulder and hip pain. Given fentanyl 25 mcg (I believe by EMS?) after which she was noted to have progressive obtundation and hypotension that resolved with fluids but only while running. Narcan was given without improvement. Per report (not in meditech) VBG with pH 7.08, CO2 HIGH. Family endorsed DNR/DNI status, but did want BiPap and pressor support. BiPap initiated at 12/5. On arrival to [facility] ABG 7.18/124/151/44 with bipap ongoing. Tidal volumes below 200. - acute resp failure: multifactorial with severe COPD and then given fentanyl. Improving CO2 on bipap. Will increase to 16/8 with goal volume around 440 cc (8 cc/kg IBW). Solumedrol, nebs ordered. - hypotension: Was presumed secondary to fentanyl, possibly persistent secondary to severe acidosis. But could have been the cause of her fall. Noted to have Hg 10.4 from 14.1 last month. Could be related to hematomas or could have proceeded fall. Will send repeat labs now. - hyperkalemia: without renal failure. Suspect secondary to acidosis. Anticipate improvement with fluids and acidosis correction. Will follow repeat labs. Diagnosis: ___ patient provided consent for the telehealth visit _x_patient is not able to provide consent for the telehealth visit, service provided to critically care patient using implied consent doctrine. A total of 35 minutes of critical care time was devoted to this patient, inclu sebastien reviewing this patient's available data, including medical history, events of note and test results. * I have overseen the activities of other members of the care team under my direct supervision during events of the note . * This was required to treat and/or prevent further deterioration of critical care conditions ( as above ). * Service provided to a patient admitted to ICU bed via interactive E-CARE system with real-time audio and video telecommunications from [facility]- ICU hub located in [place], [place] Focused Exam Height, Weight, BMI Height: 5'4.00" Weight: 115lbs. oz. 52.564682bj; BMI Method:Stated HALIE REID MD Mar 01, 2022 22:08
[2022-03-01 22:51] LABS: HEMATOCRIT 39 % (35-52); HEMOGLOBIN 10.3 g/dL (11.5-16.0); MEAN CORPUSCULAR HEMOGLOBIN 29 pg (25-34); MEAN CORPUSCULAR HGB CONC 27 g/dL (32-36); MEAN CORPUSCULAR VOLUME 107 fL (80-99); MEAN PLATELET VOLUME 10.9 fL (9.0-12.2); PLATELET COUNT 168 10^3/uL (130-400); WHITE BLOOD COUNT 11.5 10^3/uL (4.3-11.0)
[2022-03-01] MEDS ORDERED: ACETAMINOPHEN 650 MG SUPP (TYLENOL) PR PRN (23:00)
[2022-03-01] MEDS ORDERED: KETOROLAC 15 MG/ML VIAL IVP ONE (23:00)
[2022-03-01 23:06] LABS: POTASSIUM 6.2 MMOL/L (3.6-5.0)
[2022-03-01 23:07] LABS: CALCIUM 8.9 MG/DL (8.5-10.1)
[2022-03-01 23:12] LABS: CREATININE SERUM 0.83 MG/DL (0.60-1.30)
[2022-03-01 23:14] LABS: MAGNESIUM 1.9 MG/DL (1.6-2.4)
[2022-03-01] MEDS: DexMEDEtomidine 250 ML DRIP 250 ML IV SCH (23:55)
[2022-03-02] MEDS: NOREPINEPHRINE 8 MG/250 ML 250 ML IV SCH ×2 (01:09→09:43)
[2022-03-02 01:56] VITALS: BP 97/42
[2022-03-02] MEDS: RT-ALBUTEROL/IPRATROPIUM 3 ML (DUONEB) VIAL INH SCH ×6 (01:56→22:04)
[2022-03-02 02:51] LABS: ABG BASE EXCESS 15.5 MMOL/L (-2.5-2.5); ABG OXYGEN SATURATION 94 % (94-100); ABG PO2 59 MMHG (79-93); ALLENS TEST YES-POS
[2022-03-02 02:52] LABS: INSPIRED O2 40%; VENTILATOR NO
[2022-03-02 02:53] LABS: ABG PH 7.21 (7.37-7.43)
[2022-03-02 02:54] LABS: ABG PCO2 113 MMHG (35-45); ABG TCO2 47.6 MMOL/L (21.0-31.0)
[2022-03-02] MEDS: LACTATED RINGERS 1,000 ML IV SCH ×4 (03:07→08:03)
[2022-03-02 05:34] LABS: BASOPHILS % (AUTO) 0 % (0-10); EOSINOPHILS % (AUTO) 0 % (0-10); HEMATOCRIT 33 % (35-52); HEMOGLOBIN 9.5 g/dL (11.5-16.0); LYMPHOCYTES # (AUTO) 0.2 10^3/uL (1.0-4.0); LYMPHOCYTES % (AUTO) 2 % (12-44); MEAN CORPUSCULAR HEMOGLOBIN 29 pg (25-34); MEAN CORPUSCULAR HGB CONC 28 g/dL (32-36); MEAN CORPUSCULAR VOLUME 103 fL (80-99); MEAN PLATELET VOLUME 11.4 fL (9.0-12.2); MONOCYTES # (AUTO) 0.3 10^3/uL (0.0-1.0); MONOCYTES % (AUTO) 3 % (0-12); NEUTROPHILS # (AUTO) 9.1 10^3/uL (1.8-7.8); NEUTROPHILS % (AUTO) 95 % (42-75); PLATELET COUNT 180 10^3/uL (130-400); WHITE BLOOD COUNT 9.6 10^3/uL (4.3-11.0)
[2022-03-02 06:27] LABS: POTASSIUM 5.8 MMOL/L (3.6-5.0)
[2022-03-02 06:28] LABS: CALCIUM 8.6 MG/DL (8.5-10.1)
[2022-03-02 06:33] LABS: CREATININE SERUM 0.81 MG/DL (0.60-1.30)
[2022-03-02 06:35] LABS: MAGNESIUM 1.7 MG/DL (1.6-2.4)
[2022-03-02 07:08] VITALS: BP 132/59
[2022-03-02] MEDS: MAGNESIUM 1 GM/100 ML IVPB 100 ML IV SCH (07:15)
[2022-03-02] MEDS: POTASSIUM CL 10MEQ/50ML IVPB 50 ML IV SCH (07:15)
[2022-03-02] MEDS: methylPREDNISolone 125 MG (Solu-MEDROL) VIAL IVP SCH ×4 (07:16→23:54)
[2022-03-02] MEDS: KCL 20 MEQ TAB (K-DUR) PO SCH (07:16)
[2022-03-02] MEDS: ENOXAPARIN INJECTION 30 MG/0.3 ML SYR SC SCH (08:04)
[2022-03-02] MEDS: DOCUSATE SODIUM 100 MG (COLACE) CAP PO SCH ×2 (08:41→21:22)
[2022-03-02] MEDS ORDERED: SODIUM BICARB 8.4% 50 MEQ/50 ML (ABBOTT) SYR IV NR (09:00)
--- NOTE | 2022-03-02 10:01 | Tele-ICU Consult ---
History of Present Illness History of Present Illness Date Seen by Provider: Mar 02, 2022 Time Seen by Provider: 09:57 Date of Admission Tele-ICU Physician , consultation as per request of PCP Service provided via interactive audio and video telecommun123ContactForm E-CARE system to a patient admitted to ICU bed in [facility]. Available chart/ vitals / labs / Images reviewed H&P is from ER notes Patient's information available about PMH, Shx, Fhx allergy reviewed inEMR. ROS as per chart and RN report Now in ICU, hemodynamically stable Video assessment done using teleICU camera, rest of exam as per RN Discussed with RN. Consultants: Hospital course: A/P Acute resp failure: multifactorial with severe COPD and then given fentanyl - On BIPAP 06/12 45 % , rr 20 , TV 600 - to cont , recheck abg with goal volume around 440 cc (8 cc/kg IBW) AECOPD - Solumedrol IV to cont - nebs ordered. Shock - levo small dose -presumed persistent secondary to severe acidosis. Acute mental status change - CTH 03/02 neg , follow hyperkalemia: without renal failure -secondary to acidosis. Anticipate improvement with fluids and acidosis correction. Will follow repeat labs. Anemia -Noted to have Hg 10.4 from 14.1 last month. Could be related to hematomas or could have proceeded fall. - monitor s/p fall- ? ethiology -on right - bruise on right arm, skin intact - as pe PCP Lines : PICC 03/02 planned , (Central Line Necessity Reviewed) Henning: 03/01 OG: Nutrition: Analgesia: Anxiety/ delirium VTE Prophylaxis: kevin 30 Stress Ulcer Prophylaxis: ppi Glycemic Control: Plans in collaboration with bedside consultants and IM MDs. Discussed with RN to reach out if any questions or concerns A total of 40 minutes of critical care time was devoted to this patient today, required to treat and/or prevent further deterioration of critical care condition ( as above ) . I am remotely monitoring this patient from another state. I am unable to do the bedside exam, and history/physical and pertinent information is taken from other notes in the computer and bedside staff. . Allergies and Home Medications Allergies Coded Allergies: No Known Drug Allergies (Unverified , 12/05/18) Home Medications Acetazolamide 250 Mg Tablet, 250 MG PO BID Prescribed by: SPIKE MORALES on 03/08/21 1054 Albuterol Sulfate 1 Puff Puff, 2 PUFF IH Q4H PRN for SHORTNESS OF BREATH 1 PUFF = 90 MCG Prescribed by: CHRIST ELAM on 03/06/21 1327 Aspirin 81 Mg Tablet.dr, 81 MG PO DAILY Prescribed by: SPIKE MORALES on 03/08/21 1054 Budesonide/Formoterol Fumarate 10.2 Gm Hfa.aer.ad, 2 PUFF IH BID Prescribed by: CHRIST ELAM on 03/06/21 1324 Furosemide 40 Mg Tablet, 40 MG PO Q48H Prescribed by: SPIKE MORALES on 03/08/21 1054 Ipratropium/Albuterol Sulfate 3 Ml Ampul.neb, 3 ML INH RTQ4HR Prescribed by: SPIKE MORALES on 03/08/21 1054 Loratadine 10 Mg Tablet, 10 MG PO DAILY Prescribed by: SPIKE MORALES on 03/08/21 1054 Losartan Potassium 25 Mg Tablet, 25 MG PO DAILY Prescribed by: SPIKE MORALES on 03/08/21 1054 Metoprolol Succinate 25 Mg Tab.er.24h, 25 MG PO DAILY Prescribed by: SPIKE MORALES on 03/08/21 1054 Montelukast Sodium 10 Mg Tablet, 10 MG PO HS Prescribed by: SPIKE MORALES on 03/08/21 1054 Pantoprazole Sodium 40 Mg Tablet.dr, 40 MG PO DAILY Prescribed by: SPIKE MORALES on 03/08/21 1054 Prednisone 10 Mg Tab.ds.pk, 10 MG PO DAILY Take 6 tabs(60mg)daily,decrease by 1 tab(10mg)every other day. Prescribed by: SPIKE MORALES on 03/08/21 1054 Past Medical/Social/Family Hx Patient Social History Tobacco Use?: No Tobacco type used: Cigarettes Smoking Status: Current Everyday Smoker Use of E-Cig and/or Vaping dev: Unable to obtain Substance use?: Unable to obtain Alcohol Use?: Unable to obtain Immunizations Up To Date Influenza Vaccine Up-to-Date: Yes; Up-to-Date Current Status Communicates: Does Not Communicate Primary Language: Amharic Preferred Spoken Language: Amharic Review of Systems Constitutional: see HPI Focused Exam Height, Weight, BMI Height: 5'4.00" Weight: 115lbs. oz. 52.545115up; 18.66 BMI Method:Stated Exam Exam Patient acknowledged, consented, and participated in this virtual visit which was conducted using real time audio/video Vital Signs Date Time Temp Pulse Resp B/P (MAP) Pulse Ox O2 Delivery O2 Flow Rate FiO2 03/02/22 09:43 66 95/52 03/02/22 08:00 66 98/59 (72) 96 NIV Bilevel 50.00 03/02/22 08:00 37.2 03/02/22 07:48 NIV Bilevel 50 03/02/22 07:24 67 03/02/22 07:08 66 21 96 50.00 03/02/22 07:00 68 132/59 (83) 96 NIV Bilevel 50.00 03/02/22 06:00 68 20 129/59 (82) 94 NIV Bilevel 50.00 03/02/22 05:00 68 20 133/62 (85) 95 NIV Bilevel 50.00 03/02/22 04:00 36.0 03/02/22 04:00 61 20 97/44 (61) 96 NIV Bilevel 50.00 03/02/22 04:00 NIV Bilevel 50 03/02/22 03:00 73 51 95/46 (62) 96 NIV Bilevel 50.00 03/02/22 02:00 77 27 88/67 (74) 91 NIV Bilevel 50.00 03/02/22 01:56 66 20 97 40.00 03/02/22 01:00 70 12 99/38 (58) 97 NIV Bilevel 50.00 03/02/22 00:38 68 03/02/22 00:00 76 15 92/36 (54) 97 NIV Bilevel 50.00 03/01/22 23:59 NIV Bilevel 50 03/01/22 23:55 67 81/35 03/01/22 23:00 78 15 110/72 (85) 95 NIV Bilevel 50.00 03/01/22 22:00 69 20 85/43 (57) 94 NIV Bilevel 50.00 03/01/22 21:39 67 20 93 40.00 03/01/22 21:35 69 79/34 03/01/22 21:00 69 23 79/34 (49) 99 NIV Bilevel 50.00 03/01/22 20:38 37.1 71 25 85/32 (49) 96 NIV Bilevel 65.00 03/01/22 20:31 70 03/01/22 20:15 NIV Bilevel 50 03/01/22 18:55 75 81/36 92 NIV CPAP 60.00 03/01/22 16:11 94 Nasal Cannula 5.00 03/01/22 14:12 18 92/47 (62) 99 Nasal Cannula 5.00 03/01/22 13:52 34.6 82 20 75/40 (52) 94 Nasal Cannula 6.00 I & O 03/02/22 07:00 Intake Total 3000 ml Output Total 550 ml Balance 2450 ml Height & Weight Height: 5'4.00" Weight: 115lbs. oz. 52.689341nc; 18.66 BMI Method:Stated General Appearance: No Apparent Distress Gastrointestinal: normal bowel sounds, non tender, soft, no pulsatile mass Results Lab Laboratory Tests 03/01/22 15:30 03/01/22 22:45 03/02/22 05:16 Assessment/Plan Assessment/Plan 1 TONI BRINK MD Mar 02, 2022 10:01
[2022-03-02] MEDS ORDERED: morphine INJ 10 MG/ML 1ML (SYR OR VIAL) IVP STA (10:42)
[2022-03-02 10:51] VITALS: BP 107/54
[2022-03-02 11:10] LABS: ABG BASE EXCESS 17.5 MMOL/L (-2.5-2.5); ABG OXYGEN SATURATION 96 % (94-100); ABG PCO2 70 MMHG (35-45); ABG PH 7.41 (7.37-7.43); ABG PO2 62 MMHG (79-93)
[2022-03-02 11:13] LABS: ABG TCO2 45.3 MMOL/L (21.0-31.0)
[2022-03-02 11:14] LABS: INSPIRED O2 50%; PATIENT TEMP 37.2; VENTILATOR NO
[2022-03-02] MEDS ORDERED: FURO40TA4 PO (12:39)
[2022-03-02] MEDS ORDERED: ALBU2.5V4 NEB (12:39)
[2022-03-02] MEDS ORDERED: MECL-251 PO (12:39)
[2022-03-02] MEDS ORDERED: ALBU6.7H13 INH (12:39)
--- NOTE | 2022-03-02 13:28 | History & Physical-Hospitalist ---
FRANCESCO ALDRICH 03/02/22 1328: History of Present Illness HPI/Chief Complaint Esther Merlos is a 71y/o F w/ a PMH of COPD who is being seen due to respiratory d istress. Yesterday pt had a fall from standing after which she developed rt shoulder and hip pain. EMS was called to the home and she was then transported to ER in [place]. According to report she was given 25mcg of fentanyl by EMS after which she started to develop progressive hypotension and obtundation. She was then given narcan w/o improvement. Hypotension improved w/ 1L bolus. ABG in the ER had a pH of 7.08. BiPAP was then started and pt was transferred to ICU here at [facility]. Today she has been having some agitation due to the BiPAP mask. When asked she endorses having pain "everywhere". She reports that she has been struggling w/ her breathing. Pt still smokes and says she has under a PPD. While at home she is on 5L of supplemental O2. Source: patient, EMS notes reviewed, other (ER note) Date Seen 03/02/22 Time Seen by a Provider: 08:59 Attending Physician Emily Lopez MD PCP Admitting Physician: Randal Aguero MD Attending Physician: Randal Aguero MD Referring Physician Date of Admission Mar 01, 2022 at 20:15 Home Medications & Allergies Home Medications Reviewed patient Home Medication Reconciliation performed by pharmacy medication reconciliations natural gas technician and/or nursing. Patients Allergies have been reviewed. Allergies Allergies Coded Allergies No Known Drug Allergies (Unverified12/05/18) Past Apevylf-Nfrfzb-Fcecpg Hx Patient Social History Employed/Student: retired Tobacco Use?: No Tobacco type used: Cigarettes Smoking Status: Current Everyday Smoker Use of E-Cig and/or Vaping dev: Unable to obtain Substance use?: Unable to obtain Alcohol Use?: Unable to obtain Seasonal Allergies Seasonal Allergies: No Current Status Communicates: Does Not Communicate Primary Language: Trinidadian Preferred Spoken Language: Trinidadian Past Medical History Surgeries: Gallbladder, Tonsillectomy, Tubal Ligation Chronic Bronchitis, COPD, Emphysema Review of Systems Constitutional: No chills, No fever EENTM: No blurred vision, No double vision Respiratory: cough, short of breath Cardiovascular: No chest pain, No palpitations Gastrointestinal: No abdominal pain, No nausea, No vomiting Musculoskeletal: No back pain, No joint pain Psychiatric/Neurological: Denies Numbness, Denies Paresthesia Physical Exam Physical Exam Vital Signs Vital Signs - First Documented 03/01/22 03/01/22 13:52 20:15 Temp 34.6 Pulse 82 Resp 20 B/P (MAP) 75/40 (52) Pulse Ox 94 O2 Delivery Nasal Cannula O2 Flow Rate 6.00 FiO2 50 Capillary Refill : Height, Weight, BMI Height: 5'4.00" Weight: 115lbs. oz. 52.096333ua; 18.66 BMI Method:Stated General Appearance: WD/WN, Mild Distress HEENT: PERRL/EOMI; No Photophobia Respiratory: Chest Non Tender, Lungs Clear Cardiovascular: Regular Rate, Rhythm, No Murmur, Normal Peripheral Pulses Gastrointestinal: Non Tender, Soft Extremity: Non Tender, No Calf Tenderness Neurologic/Psychiatric: Alert; No Oriented x3 (not oriented to time) Skin: Normal Color, Warm/Dry Results Results/Procedures Labs Laboratory Tests 03/01/22 15:30 03/01/22 22:45 03/02/22 05:16 Patient resulted labs reviewed. Assessment/Plan Admission Diagnosis Acute on chronic respiratory failure Hyperkalemia Hypotension Anemia Assessment and Plan Acute on chronic respiratory failure COPD -Followed by eICU -Solumedrol and Duonebs -BiPAP -ABG done this morning showing improvement Hyperkalemia -5.8 today, possibly due to acidosis, hopefully will improve w/ fluids and resolving acidosis -Continue to monitor Hypotension -Improving -Levophed and IV fluids Anemia -Hgb of 9.5, down from 10.5 -Continue to monitor S/p fall -XR of right humerus and hip negative, CT head negative -continue to monitor DVT prophylaxis:Lovenox GI prophylaxis: Protonix Code Status: DNR/DNI RANDAL AGUERO MD 03/02/221918: History of Present Illness Source: patient, family Exam Limitations: no limitations Time Seen by a Provider: 09:15 Past Seroqpt-Zncsqi-Muftqt Hx Family Medical History No Pertinent Family Hx Results Results/Procedures Imaging: Reviewed Imaging Report Assessment/Plan Admission Diagnosis Admission Status: Inpatient Order (span 2 midnights) Reason for Inpatient Admission: BiPAP Assessment and Plan Admitted with acute on chronic respiratory failure with hypoxia and hypercapnia. Started on BiPAP due to hypercapnia. Patient DNR/DNI. Poor prognosis with end stage COPD and cachexia with ongoing tobacco abuse. Discussed goals of care and hospice with family. Palliative care consulted. Critical Care Critically Ill Patient Diagnosis/Problems Diagnosis/Problems (1) Acute on chronic respiratory failure with hypoxia and hypercapnia Status: Acute (2) COPD exacerbation Status: Acute (3) End stage COPD Status: Acute (4) Pulmonary cachexia due to COPD Status: Acute (5) Poor prognosis Status: Acute (6) Goals of care, counseling/discussion Status: Acute (7) Tobacco abuse Status: Acute Supervisory-Addendum Brief Verification & Attestation Participated in pt care: history, MDM, physical Personally performed: exam, history, MDM, supervision of care Care discussed with: Medical Student Procedures: n/a Results interpretation: Verified all documentation A medical student performed and documented this service in my presence. I reviewed and verified all information documented by the medical student and made modifications to such information, when appropriate. I personally performed the physical exam and medical decision making. FRANCESCO ALDRICH Mar 02, 2022 13:28 RANDAL AGUERO MD Mar 02, 2022 19:19
[2022-03-02 14:48] LABS: ABG PH 7.08 (7.37-7.43)
[2022-03-02 14:49] LABS: ABG PO2 67 MMHG (79-93)
[2022-03-02 14:55] LABS: ALLENS TEST UNABLE; INSPIRED O2 5 LITERS; VENTILATOR NO
[2022-03-02] MEDS ORDERED: LORazepam INJ 2 MG/ML (ATIVAN) VIAL IVP NR (17:30)
[2022-03-02 18:05] LABS: POTASSIUM 4.8 MMOL/L (3.6-5.0)
[2022-03-02 18:10] LABS: CREATININE SERUM 0.67 MG/DL (0.60-1.30)
[2022-03-02] MEDS ORDERED: FUROSEMIDE 40 MG/4 ML INJ (LASIX) IVP NR (18:30)
[2022-03-02 18:57] VITALS: BP 167/82
[2022-03-02 22:04] VITALS: BP 165/90
[2022-03-03] MEDS: DexMEDEtomidine 250 ML DRIP 250 ML IV SCH (00:52)
[2022-03-03 02:15] VITALS: BP 144/79
[2022-03-03] MEDS: RT-ALBUTEROL/IPRATROPIUM 3 ML (DUONEB) VIAL INH SCH ×3 (02:15→10:21)
[2022-03-03 04:33] LABS: BASOPHILS % (AUTO) 0 % (0-10); EOSINOPHILS % (AUTO) 0 % (0-10); HEMATOCRIT 28 % (35-52); HEMOGLOBIN 8.7 g/dL (11.5-16.0); LYMPHOCYTES # (AUTO) 0.3 10^3/uL (1.0-4.0); LYMPHOCYTES % (AUTO) 6 % (12-44); MEAN CORPUSCULAR HEMOGLOBIN 29 pg (25-34); MEAN CORPUSCULAR HGB CONC 31 g/dL (32-36); MEAN CORPUSCULAR VOLUME 94 fL (80-99); MEAN PLATELET VOLUME 11.4 fL (9.0-12.2); MONOCYTES # (AUTO) 0.3 10^3/uL (0.0-1.0); MONOCYTES % (AUTO) 5 % (0-12); NEUTROPHILS # (AUTO) 4.8 10^3/uL (1.8-7.8); NEUTROPHILS % (AUTO) 89 % (42-75); PLATELET COUNT 136 10^3/uL (130-400); WHITE BLOOD COUNT 5.4 10^3/uL (4.3-11.0)
[2022-03-03 04:54] LABS: CREATININE SERUM 0.77 MG/DL (0.60-1.30); MAGNESIUM 1.7 MG/DL (1.6-2.4); POTASSIUM 5.4 MMOL/L (3.6-5.0)
[2022-03-03] MEDS: methylPREDNISolone 125 MG (Solu-MEDROL) VIAL IVP SCH (05:16)
[2022-03-03] MEDS: POTASSIUM CL 10MEQ/50ML IVPB 50 ML IV SCH (05:22)
[2022-03-03] MEDS: MAGNESIUM 1 GM/100 ML IVPB 100 ML IV SCH (05:23)
[2022-03-03] MEDS: KCL 20 MEQ TAB (K-DUR) PO SCH (05:23)
[2022-03-03 06:46] VITALS: BP 141/125
[2022-03-03] MEDS: DOCUSATE SODIUM 100 MG (COLACE) CAP PO SCH (07:54)
[2022-03-03] MEDS: ENOXAPARIN INJECTION 30 MG/0.3 ML SYR SC SCH (07:54)
[2022-03-03] MEDS ORDERED: PANTOPRAZOLE 40 MG (PROTONIX) VIAL IV SCH (09:00)
[2022-03-03 10:23] LABS: ABG BASE EXCESS 19.2 MMOL/L (-2.5-2.5); ABG OXYGEN SATURATION 100 % (94-100); ABG PH 7.35 (7.37-7.43); ABG PO2 180 MMHG (79-93)
[2022-03-03 10:36] LABS: ABG PCO2 85 MMHG (35-45); ABG TCO2 48.6 MMOL/L (21.0-31.0); ALLENS TEST YES-POS
[2022-03-03 10:37] LABS: INSPIRED O2 40%; PATIENT TEMP 36.6; VENTILATOR NO
[2022-03-03] MEDS ORDERED: SALIVA SUBSTITUTE 60 ML SPRAY(MOUTHKOTE) MM PRN (11:15)
[2022-03-03] MEDS ORDERED: GLYCOPYRROLATE 0.2 MG/ML (ROBINUL) 2 ML VIAL IV PRN (11:15)
[2022-03-03] MEDS ORDERED: PROMETHAZINE INJ 25 MG/ML (PHENERGAN) AMP IVP PRN (11:15)
[2022-03-03] MEDS ORDERED: BISACODYL 10 MG SUPP (DULCOLAX) PR PRN (11:15)
[2022-03-03] MEDS ORDERED: RT-ALBUTEROL/IPRATROPIUM 3 ML (DUONEB) VIAL INH PRN (11:15)
[2022-03-03] MEDS ORDERED: ACETAMINOPHEN 650 MG SUPP (TYLENOL) PR PRN (11:15)
[2022-03-03] MEDS ORDERED: ARTIFICAL TEARS 0.4 ML UNIT DOSE (REFRESH PLUS) OU PRN (11:15)
[2022-03-03] MEDS ORDERED: ONDANSETRON 4 MG/2 ML (SDV) Z0FRAN IVP PRN (11:15)
--- NOTE | 2022-03-03 12:59 | Tele-ICU Progress Note ---
Subjective Date Seen by a Provider: Mar 03, 2022 Time Seen by a Provider: 09:41 Subjective/Events-last exam (Tele-ICU Physician , Progress Note ) Service provided via interactive audio and video telecommunications E-CARE system to a patient admitted to ICU bed in [facility]. Available chart/ vitals / labs / Images reviewed Video assessment done using teleICU camera, rest of exam as per RN Discussed with RN Events overnight : A/P Acute resp failure: multifactorial with severe COPD and then given fentanyl - On BIPAP 06/12 45 % , rr 20 , TV 600 - to cont , recheck abg with goal volume around 440 cc (8 cc/kg IBW) AECOPD - Solumedrol IV to cont - nebs ordered. Shock - OFF Acute mental status change - CTH 03/02 neg , follow hyperkalemia: without renal failure Anemia -Noted to have Hg 10.4 from 14.1 last month. Could be related to hematomas or could have proceeded fall. - monitor s/p fall -on right - bruise on right arm, skin intact - as pe PCP PER RN - FAMILY IS CONSIDERING COMFORT MEASURES WILL NEED TO ADRESS HYPERNATREMIA AND POSSIBLE INFECTION , ALONF WITH FEEDING LATTER TODAY IF FAMILY WANT TO CONT ALL MEASURES Lines : PICC 03/02 planned , (Central Line Necessity Reviewed) Henning: 03/01 OG: Nutrition: Analgesia: Anxiety/ delirium VTE Prophylaxis: kevin 30 Stress Ulcer Prophylaxis: ppi Glycemic Control: Plans in collaboration with bedside consultants and IM MDs. Discussed with RN to reach out if any questions or concerns A total of 15 minutes of critical care time was devoted to this patient today, required to treat and/or prevent further deterioration of critical care condition ( as above ) . I am remotely monitoring this patient from another state. I am unable to do the bedside exam, and history/physical and pertinent information is taken from other notes in the computer and bedside staff. Sepsis Event Evaluation Height, Weight, BMI Height: 5'4.00" Weight: 115lbs. oz. 52.596725sw; 18.66 BMI Method:Stated Exam Exam Patient acknowledged, consented, and participated in this virtual visit which was conducted using real time audio/video Vital Signs Date Time Temp Pulse Resp B/P (MAP) Pulse Ox O2 Delivery O2 Flow Rate FiO2 03/03/22 12:00 58 15 158/96 (116) 98 OxyMask 8.00 03/03/22 11:12 71 22 139/82 (101) 94 OxyMask 8.00 03/03/22 10:21 95 High Flow N/C 7.00 03/03/22 10:00 61 14 158/75 (102) 91 NIV Bilevel 40.00 03/03/22 09:00 58 17 174/90 (118) 100 NIV Bilevel 40.00 03/03/22 08:01 92 NIV Bilevel 40 03/03/22 08:00 56 19 179/97 (124) 96 NIV Bilevel 40.00 03/03/22 07:52 36.0 03/03/22 07:00 63 18 176/91 (119) 97 NIV Bilevel 40.00 03/03/22 07:00 69 03/03/22 06:46 64 26 88 40.00 03/03/22 06:00 54 17 173/82 (112) 94 NIV Bilevel 40.00 03/03/22 05:00 68 17 162/79 (106) 95 NIV Bilevel 40.00 03/03/22 04:00 62 16 146/84 (104) 91 NIV Bilevel 40.00 03/03/22 04:00 NIV Bilevel 50 03/03/22 03:00 56 18 165/76 (105) 91 NIV Bilevel 40.00 03/03/22 02:22 NIV Bilevel 40.00 03/03/22 02:19 40.00 03/03/22 02:15 57 20 95 50.00 03/03/22 02:00 69 22 144/79 (100) 95 NIV Bilevel 50.00 03/03/22 01:00 60 03/03/22 01:00 54 29 175/83 (113) 95 NIV Bilevel 50.00 03/03/22 00:52 52 165/90 03/03/22 00:00 36.3 03/03/22 00:00 55 24 158/72 (100) 92 NIV Bilevel 50.00 03/02/22 23:59 NIV Bilevel 50 03/02/22 23:00 54 27 157/70 (99) 95 NIV Bilevel 50.00 03/02/22 22:04 52 21 93 50.00 03/02/22 22:00 51 22 165/90 (115) 93 NIV Bilevel 50.00 03/02/22 21:00 52 18 166/87 (113) 93 NIV Bilevel 50.00 03/02/22 20:00 53 16 169/79 (109) 93 NIV Bilevel 50.00 03/02/22 20:00 NIV Bilevel 50 03/02/22 19:00 53 12 167/82 (110) 92 NIV Bilevel 50.00 03/02/22 19:00 54 03/02/22 18:57 54 20 93 50.00 03/02/22 18:00 55 19 154/79 (104) 93 NIV Bilevel 50.00 03/02/22 17:00 63 22 125/80 (95) 85 NIV Bilevel 50.00 03/02/22 16:22 NIV Bilevel 50 03/02/22 16:19 36.6 70 16 127/69 (88) 94 NIV Bilevel 50.00 03/02/22 16:00 72 49 135/102 (113) 80 NIV Bilevel 50.00 03/02/22 15:06 94 High Flow N/C 6.00 03/02/22 15:00 70 16 127/69 (88) 98 NIV Bilevel 50.00 03/02/22 14:00 75 15 115/74 (88) 93 NIV Bilevel 50.00 03/02/22 13:25 75 03/02/22 13:00 79 18 102/48 (66) 90 NIV Bilevel 50.00 I & O 03/03/22 07:00 Intake Total 1030 ml Output Total 900 ml Balance 130 ml Height & Weight Height: 5'4.00" Weight: 115lbs. oz. 52.095016ju; 18.66 BMI Method:Stated General Appearance: WD/WN, Mild Distress HEENT: PERRL/EOMI; No Photophobia Respiratory: Chest Non Tender, Lungs Clear Cardiovascular: Regular Rate, Rhythm, No Murmur, Normal Peripheral Pulses Gastrointestinal: normal bowel sounds, non tender, soft, no pulsatile mass Extremity: Non Tender, No Calf Tenderness Neurologic/Psychiatric: Alert; No Oriented x3 (not oriented to time) Skin: Normal Color, Warm/Dry Results Lab Laboratory Tests 03/01/22 15:30 03/01/22 22:45 03/02/22 05:16 03/02/22 17:40 03/03/22 04:25 Assessment/Plan Assessment/Plan 1 TONI BRINK MD Mar 03, 2022 12:59
[2022-03-03] MEDS: LORazepam 1 MG (ATIVAN) TAB SL PRN (15:22)
[2022-03-03] MEDS: morphine INJ 4 MG/ML 1 ML (VIAL/SYRINGE) IV PRN (15:22)
--- NOTE | 2022-03-03 19:33 | Progress Note - Hospitalist ---
Subjective HPI/CC On Admission Date Seen by Provider: Mar 03, 2022 Time Seen by Provider: 10:40 Esther Merlos is a 71y/o F w/ a PMH of COPD who is being seen due to respiratory distress. Yesterday pt had a fall from standing after which she developed rt shoulder and hip pain. EMS was called to the home and she was then transported to ER in [place]. According to report she was given 25mcg of fentanyl by EMS after which she started to develop progressive hypotension and obtundation. She was then given narcan w/o improvement. Hypotension improved w/ 1L bolus. ABG in the ER had a pH of 7.08. BiPAP was then started and pt was transferred to ICU here at [facility]. Today she has been having some agitation due to the BiPAP mask. When asked she endorses having pain "everywhere". She reports that she has been struggling w/ her breathing. Pt still smokes and says she has under a PPD. While at home she is on 5L of supplemental O2. Subjective/Events-last exam She is awake and alert but confused. She denies pain. Her family is at the bedside. We discussed goals of care. Objective Exam Vital Signs Vital Signs Date Time Temp Pulse Resp B/P (MAP) Pulse Ox O2 Delivery O2 Flow Rate FiO2 03/03/22 15:52 36.0 03/03/22 13:00 60 13 160/84 (109) 98 OxyMask 8.00 03/03/22 08:01 40 Capillary Refill : General Appearance: No Apparent Distress, Chronically ill, Cachetic Respiratory: No Respiratory Distress, Decreased Breath Sounds Cardiovascular: Regular Rate, Rhythm, No Murmur Gastrointestinal: Normal Bowel Sounds, Non Tender, Soft Extremity: Normal Inspection, No Pedal Edema Neurologic/Psychiatric: Alert, Disoriented Results/Procedures Lab Laboratory Tests 03/03/22 04:25 Patient resulted labs reviewed. Imaging: Reviewed Imaging Report Assessment/Plan Assessment and Plan Assess & Plan/Chief Complaint Acute on chronic respiratory failure with hypoxia and hypercapnia COPD exacerbation End stage COPD COPD cachexia Poor prognosis Goals of care discussion Comfort measures only status Discussion with family, RN, SW/palliative care, family electing to transition to comfort care Comfort measures order set placed Transition to 4th floor Critical Care Critically Ill Patient Diagnosis/Problems Diagnosis/Problems (1) Acute on chronic respiratory failure with hypoxia and hypercapnia Status: Acute (2) COPD exacerbation Status: Acute (3) End stage COPD Status: Acute (4) Pulmonary cachexia due to COPD Status: Acute (5) Poor prognosis Status: Acute (6) Goals of care, counseling/discussion Status: Acute (7) Tobacco abuse Status: Acute (8) Comfort measures only status Status: Acute RANDAL AGUERO MD Mar 03, 2022 19:33
[2022-03-04] MEDS: morphine INJ 4 MG/ML 1 ML (VIAL/SYRINGE) IV PRN ×5 (03:28→18:26)
[2022-03-04] MEDS: MAGNESIUM 1 GM/100 ML IVPB 100 ML IV SCH (07:40)
[2022-03-04] MEDS: LORazepam 1 MG (ATIVAN) TAB SL PRN (13:37)
--- NOTE | 2022-03-04 16:42 | Progress Note - Hospitalist ---
Subjective HPI/CC On Admission Date Seen by Provider: Mar 04, 2022 Time Seen by Provider: 11:30 Esther Merlos is a 71y/o F w/ a PMH of COPD who is being seen due to respiratory distress. Yesterday pt had a fall from standing after which she developed rt shoulder and hip pain. EMS was called to the home and she was then transported to ER in [place]. According to report she was given 25mcg of fentanyl by EMS after which she started to develop progressive hypotension and obtundation. She was then given narcan w/o improvement. Hypotension improved w/ 1L bolus. ABG in the ER had a pH of 7.08. BiPAP was then started and pt was transferred to ICU here at [facility]. Today she has been having some agitation due to the BiPAP mask. When asked she endorses having pain "everywhere". She reports that she has been struggling w/ her breathing. Pt still smokes and says she has under a PPD. While at home she is on 5L of supplemental O2. Subjective/Events-last exam She opens her eyes but does not speak. She is not communicating. Her room has many family members visiting. Objective Exam Vital Signs Vital Signs Date Time Temp Pulse Resp B/P (MAP) Pulse Ox O2 Delivery O2 Flow Rate FiO2 03/04/22 08:00 92 OxyMask 40 03/04/22 07:59 8.00 03/03/22 15:52 36.0 03/03/22 13:00 60 13 160/84 (109) Capillary Refill : General Appearance: No Apparent Distress, Chronically ill, Cachetic Respiratory: No Respiratory Distress, Decreased Breath Sounds Cardiovascular: Regular Rate, Rhythm, No Murmur Gastrointestinal: Normal Bowel Sounds, Soft Extremity: No Pedal Edema Neurologic/Psychiatric: Alert, Aphasia, Motor Weakness Results/Procedures Lab Patient resulted labs reviewed. Imaging: Reviewed Imaging Report Assessment/Plan Assessment and Plan Assess & Plan/Chief Complaint Acute on chronic respiratory failure with hypoxia and hypercapnia COPD exacerbation End stage COPD COPD cachexia Poor prognosis Goals of care discussion Comfort measures only status Continue comfort care Diagnosis/Problems Diagnosis/Problems (1) Acute on chronic respiratory failure with hypoxia and hypercapnia Status: Acute (2) COPD exacerbation Status: Acute (3) End stage COPD Status: Acute (4) Pulmonary cachexia due to COPD Status: Acute (5) Poor prognosis Status: Acute (6) Goals of care, counseling/discussion Status: Acute (7) Tobacco abuse Status: Acute (8) Comfort measures only status Status: Acute RANDAL AGUERO MD Mar 04, 2022 16:42
--- NOTE | 2022-03-04 19:09 | Discharge Summary ---
Discharge Summary Hospital Course Was the Problem List Reviewed?: Yes Problems/Dx: (1) Acute on chronic respiratory failure with hypoxia and hypercapnia Status: Acute (2) COPD exacerbation Status: Acute (3) End stage COPD Status: Acute (4) Pulmonary cachexia due to COPD Status: Acute (5) Poor prognosis Status: Acute (6) Goals of care, counseling/discussion Status: Acute (7) Tobacco abuse Status: Acute (8) Comfort measures only status Status: Acute Hospital Course Date of Admission: Mar 01, 2022 at 20:15 Admission Diagnosis : Acute on chronic respiratory failure with hypoxia and hypercapnia due to end stage COPD with exacerbation Family Physician/Provider: Umberto Pitts MD Date of Discharge: 03/04/22 Discharge Diagnosis: Acute on chronic respiratory failure with hypoxia and hypercapnia due to end stage COPD with exacerbation Hospital Course: Esther Merlos is a 71 year old female with end stage COPD and cachexia who was admitted with acute on chronic respiratory failure with hypoxia and hypercapnia due to end stage COPD with exacerbation. She was treated with steroids, breathing treatments, and BiPAP but her hypercapnia failed to improve. Her family elected to transition to comfort measures only. She subsequently on 03/04/2022 at 1847. Labs and Pending Lab Test: Home Meds Active Reported Albuterol Sulfate 2.5 Mg/3 Ml (0.083 %) Vial.neb 3 Ml NEB TID PRN Proventil Hfa (Albuterol Sulfate) 90 Mcg Hfa.aer.ad 2 Puff INH Q6H PRN Antivert (Meclizine HCl) 25 Mg Tab.chew 25 Mg PO Q12H PRN Furosemide 40 Mg Tablet 40 Mg PO Q48H PRN Assessment/Pt Instructions Patient Discharge Planning: >30 minutes discharge planning Discharge Physical Examination Vital Signs Vital Signs Date Time Temp Pulse Resp B/P (MAP) Pulse Ox O2 Delivery O2 Flow Rate FiO2 03/04/22 08:00 92 OxyMask 40 03/04/22 07:59 8.00 03/03/22 15:52 36.0 03/03/22 13:00 60 13 160/84 (109) Allergies: Coded Allergies: No Known Drug Allergies (Unverified , 12/05/18) Copy Copies To 1: UMBERTO PITTS MD Discharge Summary Date of Admission Mar 01, 2022 at 20:15 Date of Discharge Discharge Date: Mar 04, 2022 Discharge Time: 18:47 Admission Diagnosis Acute on chronic respiratory failure with hypoxia and hypercapnia Comfort Measures/ End of Life Care: Comfort Measures Advance Care discuss with: patient, family member (s) Plan: initiate discussion, clarifying prognosis, identified end-of-life goals, developed treatment plan Time spent on discussion (min): 30 Cardiopulmonary Arrest: Cardiorespiratory Arrest Date of : Mar 04, 2022 Time of : 18:47 Discharge Diagnosis Acute on chronic respiratory failure with hypoxia and hypercapnia COPD exacerbation End stage COPD COPD cachexia Poor prognosis Goals of care discussion Comfort measures only status (1) Acute on chronic respiratory failure with hypoxia and hypercapnia Status: Acute (2) COPD exacerbation Status: Acute (3) End stage COPD Status: Acute (4) Pulmonary cachexia due to COPD Status: Acute (5) Poor prognosis Status: Acute (6) Goals of care, counseling/discussion Status: Acute (7) Tobacco abuse Status: Acute (8) Comfort measures only status Status: Acute RANDAL AGUERO MD Mar 04, 2022 19:08
== END 2022-03-04 23:45 | disposition expired | DRG 208 ==
LOC: EDUNIT# 13:41 → ER FS 13:42 → ICU 20:15 → 4TH 03-03 14:29
PROVIDERS: ADMIT Internal Medicine; ATTEND Internal Medicine
PROC: 5A09457 Assistance with Respiratory Ventilation, 24-96 Consecutive Hours, Continuous Positive Airway Pressure (ICD-10-PCS; principal; 2022-03-01)
PROC: 5A1935Z Respiratory Ventilation, Less than 24 Consecutive Hours (ICD-10-PCS; 2022-03-02)
DX: J96.21 Acute and chronic respiratory failure with hypoxia (principal); R64 Cachexia; R57.9 Shock, unspecified; E87.20 Acidosis, unspecified; Z68.1 Body mass index [BMI] 19.9 or less, adult; J96.22 Acute and chronic respiratory failure with hypercapnia; Z51.5 Encounter for palliative care; F17.210 Nicotine dependence, cigarettes, uncomplicated; R41.82 Altered mental status, unspecified; E87.5 Hyperkalemia; D64.9 Anemia, unspecified; Z79.82 Long term (current) use of aspirin; Z79.899 Other long term (current) drug therapy; J43.9 Emphysema, unspecified; S40.011A Contusion of right shoulder, initial encounter; W18.30XA Fall on same level, unspecified, initial encounter; Z66 Do not resuscitate
CPT/HCPCS: 36415; 36569; 51701; 70450; 71045; 73060; 73502; 76937; 80048; 80053; 81000; 82805; 82947; 83735; 84145; 85007; 85025; 85027; 86850; 86900; 86901; 93041; 94640; 94660; 99291